=== PATIENT | female | born 1985 | race Caucasian/White ===

== ENCOUNTER 2024-05-15 11:13 | Emergency (ER) | payer MEDICAID, SELFPAY ==
[2024-05-15 11:15] VITALS: BP 114/75; PULSE 97; RESP 16; TEMP 36.7; O2SAT 99; BMI 32.1
[2024-05-15] MEDS: Lidocaine 2% Viscous15 ML UDC 15 ML PO (11:46)
[2024-05-15] MEDS: Mag /Aluminum/Simeth WCH UDC 30 ML ORAL.SUSP PO (11:46)
--- NOTE | 2024-05-15 11:48 | EDS_ITS ---
HPI History of Present Illness Chief Complaint: Foreign Body Detail of Chief Complaint: Sliding sensation in her chest and burning sensation Informant: patient Onset/Context/Timing Onset: - (Persistent past 5 days, prior intermittent) Context: Sudden Onset Timing: Continuous Quality: Burning sensation with a sensation of something sliding up and down her angel Location: Chest Current Severity: Mild Maximum Severity: Severe Worsened by: Swallowing liquids or solids Relieved by: Nothing Associated Symptoms Associated Symptoms: No other symptoms Narrative Narrative: Patient is a 38-year-old female. She was seen yesterday at [facility]. Her records from what is [facility] were obtained. The history and physical performed by the ER physician was reviewed. The report was authored by Dr. Freddy Gamino. Tests that were performed included chest x- ray, test, urinalysis, CBC, troponin, D-dimer and comprehensive metabolic panel. She also had an EKG performed that was normal. UA was negative. The UA was a contaminated specimen. D-dimer was 0.19. Troponin was less than 0.012. Comprehensive metabolic panel reveals slight elevation of BUN. CBC revealed no abnormality patient was instructed to take Prilosec. Patient does report some increased symptoms when she is supine. She denies black or ma roon-colored stool. She has had no vomiting. She has never seen a GI specialist. Prior similar symptoms: Yes Recent Illness/Hospitalization: Yes [facility] Medical History GERD (gastroesophageal reflux disease) Home Medications ?Medication ?Instructions ?Recorded ?Last Taken ?Type omeprazole 40 mg capsule,delayed 40 mg PO DAILY #30 caps 05/15/24 Unknown Rx release Allergy/AdvReac Type Severity Reaction Status Date / Time Penicillins (PCN) Allergy Severe Anaphylaxis Verified 05/15/24 11:14 Social History (Updated 05/15/24 @ 11:[address] Manohar Ramos MD) Smoking Status: Former smoker details: Not recently substance use type: does not use ROS ROS ED Constitutional Constitutional ED: Reports other Details: Patient reports 5 pound weight gain in the past 2 weeks. ; Denies chills, fever(s), subjective, sweats or weight loss Eyes Eyes: Denies blurry vision, change in vision or diplopia ENT ENT ED: Denies ear pain, rhinorrhea or sore throat Cardiovascular Cardiovascular: Reports chest pain and other Details: She denies orthopnea or PND. ; Denies orthopnea, palpitations, paroxysmal nocturnal dyspnea or racing heartbeat Respiratory/Chest Respiratory/Chest: Denies cough, dyspnea, dyspnea on exertion, orthopnea, paroxysmal nocturnal dyspnea or sputum Gastrointestinal Gastrointestinal: Denies abdominal pain, nausea or vomiting Genitourinary Genitourinary ED: Denies dysuria, hematuria or urinary frequency Musculoskeletal Musculoskeletal: Denies back pain Hematologic/Lymphatic Hematologic/Lymphatic: Reports systems reviewed and no addt'l complaints, except as documented EXAM Physical Exam Const Vital Signs: 05/15/24 11:15 05/15/24 11:49 Temperature 98.1 F Temperature Source Temporal Pulse Rate 97 Respiratory Rate 16 Respiratory Effort Normal Respiratory Pattern Normal Blood Pressure 114/75 Blood Pressure Mean 88 Pulse Ox 99 Oxygen Delivery Method Room Air Positive well nourished Constitutional Narrative: Patient at 1 point looked as if she was tearful. General Appearance ED: NAD; Negative for cyanotic, diaphoretic or pallor HEENT Reports dry mucous membranes HEENT Narrative: Normal posterior pharynx Mouth ED: Yes dry mucous membranes Mouth: dry mucous membranes Eyes PERRL and EOMs intact bilaterally General Eye ED: Negative for pale conjunctiva or scleral icterus Neck no lymphadenopathy, supple and no JVD Chest Wall inspection of chest normal and palpation of chest normal Resp normal respiratory effort and clear to auscultation bilaterally Cardio regular rate, regular rhythm, S1 normal heart sound, S2 normal heart sound and no murmurs GI normal to inspection, nondistended, normoactive bowel sounds, non-tender, non- distended and no masses; Negative for hepatosplenomegaly Palpation: Negative for mass Back/Spine no CVA tenderness Extremity normal to inspection General Extremety ED: Negative for edema or tenderness General Extremity: Negative for edema Neuro oriented x3 and CN's II-XII intact bilaterally Sensorium / Orientation: alert Psych Mood & Affect: anxious Skin no rashes or lesions noted, no wounds and skin turgor normal General Skin Exam: elasticity normal; Negative for jaundice or pallor MDM MDM MDM Narrative Medical decision making narrative: Patient's symptoms are consistent with GI etiology i.e. esophagitis/reflux. Since patient had significant workup yesterday and report and laboratory results as well as imaging results are available my opinion there is no indication to repeat these. Treatment and Re-Evaluation :: Patient was reassessed at 1200. Patient was discharged home in stable improved condition. She states the GI cocktail did help. Discharge Plan Triage Chief Complaint: Foreign Body ED Provider: Manohar Ramos Dx/Rx/DC Orders Clinical Impression: Dyspepsia, Gastroesophageal reflux disease Instructions: GERD Lifestyle Changes, ED GERD (Adult) Prescriptions: New omeprazole 40 mg capsule,delayed release(DR/EC) 40 mg PO DAILY Qty: 30 0RF Primary Care Provider: Care Physician,No Primary Referrals: Friend,Fredo, [Med Staff - Active Staff] - 1-2 Weeks NOT,DEFINED [Non-Staff] - Print Language: Greek Disposition Disposition: Home, Self Care
[2024-05-15 12:08] VITALS: BP 127/63; PULSE 72; RESP 15; TEMP 36.4; O2SAT 99
== END 2024-05-15 12:09 | disposition home or self-care (01) ==
PROVIDERS: Emergency Provider Emergency Medicine; Visit Provider Emergency Medicine
DX: K21.9 Gastro-esophageal reflux disease without esophagitis (principal); Z87.891 Personal history of nicotine dependence
CPT/HCPCS: 99283

== ENCOUNTER 2024-05-30 07:36 | Day surgery (SDC) | payer MEDICAID, SELFPAY ==
[2024-05-30] MEDS: Lidocaine Jelly 2% 20 ML Syringe (URO-JET) 1 APPLIC (07:51)
[2024-05-30 07:56] VITALS: BP 115/71; PULSE 90; RESP 16; TEMP 37; O2SAT 100
== END 2024-05-30 08:25 | disposition home or self-care (01) ==
PROVIDERS: Visit Provider Internal Medicine Gastroenterology
PROC: F00ZJWZ Instrumental Swallowing and Oral Function Assessment using Swallowing Equipment (ICD-10-PCS; CPT 43235; principal; 2024-05-30 07:40)
DX: K22.2 Esophageal obstruction (principal); K44.9 Diaphragmatic hernia without obstruction or gangrene; K29.50 Unspecified chronic gastritis without bleeding; K31.89 Other diseases of stomach and duodenum; K21.9 Gastro-esophageal reflux disease without esophagitis; F17.210 Nicotine dependence, cigarettes, uncomplicated; F17.290 Nicotine dependence, other tobacco product, uncomplicated; Z79.899 Other long term (current) drug therapy
CPT/HCPCS: 43239; 43248

== ENCOUNTER 2024-06-05 05:23 | Day surgery (SDC) | payer MEDICAID, SELFPAY ==
[2024-06-05] VITALS (8 sets, daily range): BP systolic 95–111; BP diastolic 57–68; PULSE 75–100; RESP 16–18; TEMP 36.2–36.6; O2SAT 98–99; BMI 31.4
[2024-06-05] MEDS: Lactated Ringers 1,000 ML 15 ML IV (05:53)
--- NOTE | 2024-06-05 06:28 | HP.PCM_ITS ---
History and Physical Date of Admission: 06/05/24 [facility] [address] [place] [address] OFFICE VISIT Date of Service: 05/26/24 MR#: [id number] Acct: [id number] Name: LINDA ALBA Rep #: [id number] : 1985 Provider: PRAVEEN Singh Age/Sex: 38/F Location: [facility] Status: Signed Intake Vital Signs 05/15/2411:15 Height 5 ft 2 in Intake Visit Reasons: Gastroesophageal reflux disease (GERD) Allergies Penicillins (PCN) Allergy (Severe, Verified 05/15/24 11:14) Anaphylaxis Nurse's Note: OV 05.26.24 Pt here for GERD sx. Pt reports if feels like there is something stuck in her throat for the past three weeks. She feels the food coming up and down. She has lost 7 lbs in 3 days and is finding it hard to eat. Pt started omeprazole 3 weeks ago with no relief. Has formed BM every day. [facility] Medical History (Updated 05/26/24 @ 08:31 by PRAVEEN Batista) GERD (gastroesophageal reflux disease) Social History (Updated 05/15/24 @ 11:[address] Manohar Ramos MD) Smoking Status: Former smoker details: Not recently substance use type: does not use HPI HPI Details: LINDA ALBA, is a 38 F who presents to the office today for establishment with [facility] for complaints of food moving up and down in her throat. She has been to [facility] ER on 05/15/24 and the doctor charted having received her records from [facility], on 05/14/24. The history and physical performed by the ER physician was reviewed. The report was authored by Dr. Freddy Gamino. Tests that were performed included chest x-ray, test, urinalysis, CBC, troponin, D-dimer and comprehensive metabolic panel. She also had an EKG performed that was normal. UA was negative. The UA was a contaminated specimen. D-dimer was 0.19. Troponin was less than 0.012. Comprehensive metabolic panel reveals slight elevation of BUN. CBC revealed no abnormality patient was instructed to take Prilosec. Today, she reports that the Prilosec has not helped the sensation of food moving in her throat. She reports that she's afraid to eat, stating a 7 pound weight loss in 1 week. She states the symptoms are much worse if lying supine, sleeps with her head elevated and on her left side. Denies vomiting, but her belching tastes and smells like vomit. Denies epigastric pain, diarrhea, constipation, fever, chills, difficulty chewing. Denies bloating and excessive gas. Reports primary family history of asthma. Denies food allergies or sensitivities. ROS Const Constitutional: Positive for weight change; No fatigue or fever(s) Eyes Eyes: No change in vision ENT ENT: Positive for difficulty swallowing; No abnormal hearing Resp Respiratory: No cough Cardio Cardiology: No chest pain at rest or chest pain with exertion Gastro GI: Positive for heartburn, difficulty swallowing and nausea/dyspepsia; No abdominal pain, belching, bloating, change in bowel habits, change in stool character, coffee ground emesis, constipation, cramping, diarrhea, feeling full early, excessive flatus, incontinent of stools, Vomiting blood/hematemesis, Blood in stool, loose stools, Black,tarry stools, pain with swallowing, vomiting or other Genitourinary-Female: No difficulty urinating Musc Musculoskeletal: No joint pain Skin Skin: No yellowing of the eye or itchy eyes Neuro Neurology: No abnormal hearing Psych Psychiatric: Positive for anxiety and No depression Endo Endocrine: Positive for weight change; No fatigue Aller/Imm Allergy/Immunologic: No food intolerance or itchy eyes Lobito/Lymp Hematologic/Lymphatic: No easy bleeding or easy bruising Exam Const General: cooperative and healthy appearing Nutritional Appearance: average body habitus Orientation: alert [facility] Head: normal to inspection Ears: hearing grossly normal bilaterally Nose: external nose normal Face and sinus: normal facial exam and face symmetric Eyes General: appearance normal, both eyes and all related structures Sclera: sclerae normal Neck Neck: normal visual inspection and full ROM Neck mass: No Chest Chest palpation & inspection: normal inspection of the chest Resp Effort & Inspection: normal respiratory effort, able to speak in complete sentences and symmetric chest movement GI Inspection: normal to inspection Skin General: no rashes or lesions noted Neuro General: patient alert, patient awake and patient oriented x3 Cranial Nerves: CN's II-XI intact bilaterally Cognition: normal cognition Speech: speech normal Gait: normal gait Extrem General: full ROM Psych Appearance: well kempt Mood: congruent mood Assessment and Plan Assessment and Plan (1) Gastroesophageal reflux disease: Status: Acute Qualifiers: Esophagitis presence: esophagitis presence not specified Qualified Code(s): K21.9 - Gastro-esophageal reflux disease without esophagitis Plan: LINDA ALBA, is a 38 F who presents to the office today for establishment with [facility] for complaints of food moving up and down in her throat. Differential diagnoses include: EoE, GERD, esophageal dysmotility, LES dysfunction, gastroparesis, gastric outlet obstruction. * GET, 1 hr test to look for emptying time * esophageal manometry to rule out achalasia * EGD for tissue Bx to check for EoE, alarm symptom of 7 pound weight loss in 1 week Orders: Orders Gastric Emptying Study Today K21.9 - Gastro-esophageal reflux disease without esophagitis Medications: New omeprazole Stop taking 5 days before scheduled EGD. 40 mg PO BID 60 caps 2RF famotidine Stop taking 5 days before scheduled EGD. 20 mg PO BID PRN 60 tabs 2RF in digestion I have examined the patient and the H&P has been reviewed. There are no clinical changes since date of exam.
--- NOTE | 2024-06-05 06:28 | PRE.ANES_ITS ---
ASA Classification* ASA Classification ASA Classification: 2 Assessment & Plan Anesthesia* Anesthesia Assessment Anesthesia Assessment: Discussed sedation and/or anesthesia options, risks, benefits, and alternatives with patient/parents/legal guardian/POA. Questions invited. The patient/parents/legal guardian/POA seems to understand and agrees to proceed with anesthesia plan. Reviewed the physical assessment, medical history, allergy history and patient home medications list prior to surgery/procedure/anesthetic and documented any changes. Performed airway and anesthesia risk assessments. Anesthesia Type Anesthesia Type: MAC History Source History Obtained from:: Patient and Chart Anesthesia Focused Assessment* Temperature: 97.8 F Pulse Rate: 97 Blood Pressure: 111/60 Respiratory Rate: 16 Pulse Ox: 98 Airway Assessment Mouth opens: >3 cm Mallampati Score: II Teeth Condition: Intact Neck Range of motion (ROM): Full ROM Focused Labs Anesthesia Preop lab: CBC CHEMISTRY COAG Pre-Assessment Diagnosis/Proposed Procedure Planned Operative Procedure(s): EGD Anesthesia History Anesthesia History - retail selling specialist: Anesthesia History - retail selling specialist Hx Hospitalization No 06/03/24 15:08 Any Problems With Anesthesia No 06/03/24 15:08 Cholinesterase deficiency No 06/03/24 15:08 You/Your Family Experience No 06/03/24 15:08 fever (hyperthermia) with Relationship Recent Exposure to Contagious No 06/05/24 05:50 Disease Does patient have nerve No 06/03/24 15:08 stimulator Patient instructed to have device shut off --Does patient have Pacemaker No 06/05/24 05:50 or ICD? When Was Last Pacemaker Check QUESTION #4 FULL TEXT: You/Your Family Experience fever (hyperthermia) with Anesthesia Last Oral Intake Last Oral intake: Last Oral Intake NPO since Meds taken in AM with sips of water? Meds patient instructed to take am of surgery PONV PONV - retail selling specialist: PONV - retail selling specialist Female Yes 06/03/24 15:08 HX of Motion Sickness No 06/03/24 15:08 HX of N/V After Surgery No 06/03/24 15:08 Non-Smoker No 06/03/24 15:08 Duration of Surgery greater No 06/03/24 15:08 than 60 minutes Number of Risk Factors 1 06/03/24 15:08 PONV Score Low Risk 06/03/24 15:08 Height & Weight Height & Weight: Anesthesia: Height & Weight Height 5 ft 2 in 06/05/24 05:50 Weight: 78 kg 06/05/24 05:50 Body Mass Index (BMI) 31.4 06/05/24 05:50 Respiratory Assessment Respiratory Assessment - retail selling specialist: Respiratory Tract Infection Hx - retail selling specialist Hx Respiratory Tract Infection No 06/03/24 15:08 STOP Sleep Apnea STOP Sleep Apnea - retail selling specialist: STOP Sleep Apnea - retail selling specialist Hx Hypertension No 06/03/24 15:08 Hx Sleep Apnea No 06/03/24 15:08 CPAP BIPAP Do you snore loudly (louder No 06/03/24 15:08 than talking or can be heard Do you often feel tired/ No 06/03/24 15:08 fatigued/ sleepy during daytime? Has anyone observed you stop No 06/03/24 15:08 breathing during sleep? STOP Results Negative 06/03/24 15:08 QUESTION #5 FULL TEXT : Do you snore loudly (louder than talking or can be heard through closed doors)? 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 Specify any problems Hx of Preganancy in last 3 No 06/03/24 15:08 Months Nurse Filling Out Transfusion DSCHRIBER 06/03/24 15:08 & Questions: Date: 06/03/24 06/03/24 15:08 Time: 15:09 06/03/24 15:08 Patient unable to answer at this time (ie. confused, unrespo /Reproduction History /Reproductive History - retail selling specialist: /Reproductive Hx- retail selling specialist Hx Now No 06/03/24 15:08 Gestational Age (in weeks): EDC: Hx Hx Para Hx Section SAB No 06/03/24 15:08 Active Medications Active Medications: Current Medications Generic Name Dose Route Start Last Admin Trade Name Freq PRN Reason Stop Dose Admin Lactated Ringer's 1,000 mls @ 15 mls/hr 06/05/24 05:45 06/05/24 05:53 IV 15 mls/hr .Q48H VARINDER Administration PFSH Medical History Wears glasses Anemia Smoker GERD (gastroesophageal reflux disease) Home Medications ?Medication ?Instructions ?Recorded ?Last Taken ?Type famotidine 20 mg tablet 20 mg PO BID PRN indigestion #60 05/26/24 05/31/24 Rx tabs omeprazole 40 mg capsule,delayed 40 mg PO BID #60 caps 05/26/24 Unknown Rx release Allergy/AdvReac Type Severity Reaction Status Date / Time Penicillins (PCN) Allergy Severe Anaphylaxis Verified 06/05/24 05:50 Surgical History Hx of tubal ligation Hx of tonsillectomy Social History Smoking Status: Current some day smoker tobacco type: cigarettes and e- cigarettes details: Not recently substance use type: does not use Review of Systems (Anesthesia) ROS Narrative System reviewed and no additional complaints, except as documented.
--- NOTE | 2024-06-05 06:30 | EGD_PTH ---
PATIENT: LINDA ALBA LOC: [facility] U#:[id number] AGE/SX: 39/F ROOM: RE06/05/[address]: Dr. Fredo Welch DO : 1985 BED: DIS: 06/05/2024 SPEC #: [id number] RECD: 06/05/24 09:25 STATUS: GENESIS PETER #: [id number] ANJANA: 06/05/24 06:[address]: Fredo Welch DEPT: SURGICAL PATHOLOGY RECD BY: Isabell Ulloa ENTERED: 06/05/24 10:48 SP TYPE: EGD BIOPSY OTHR DR: Mirela Primary Care Phys Tissues: A - Esophagus, NOS B - Esophagus, NOS C - Gastric mucous membrane D - Duodenum, NOS Procedures: Special Stain Group I Surgery Specimen Level IV Alcian Blue/PAS (control) HEADER OPERATION: EGD with biopsy and dilation PRE-OP DIAGNOSIS: TISSUE SUBMITTED: A- Distal esophagus biopsy, B- Random esophagus biopsy, C- Gastric body biopsy, D- Duodenum biopsy MICROSCOPIC DIAGNOSIS A. Distal esophagus, biopsy: Fragments of gastroesophageal mucosa with chronic inflammation. Intestinal metaplasia (goblet cell metaplasia) not identified. See comment. B. Esophagus, random biopsy: Fragments of benign squamous epithelium. See comment. C. Gastric body, biopsy: Mild gastritis. See microscopic description and comment. D. 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 SJ/mr 06/06/2024 COMMENT A. Alcian blue/PAS stain with matched control is used in the evaluation of the specimen. The specimen predominantly consists of gastric mucosa. B. Increased number of eosinophils consistent with eosinophilic esophagitis are not seen. C. The results of immunohistochemistry for Helicobacter pylori will be reported separately ([id number]). MICROSCOPIC DESCRIPTION Slides are reviewed. C. The specimen shows fragments of gastric mucosa with chronic inflammatory cell infiltrates in the lamina propria consisting of lymphocytes and plasma cells, consistent with mild chronic gastritis. GROSS DESCRIPTION A. Received in fixative is one container labeled with the patient's name and designated Distal esophagus biopsy. The specimen consists of two irregular fragments of light sinclair soft tissue that in aggregate measure 0.6 x 0.3 x 0.1 cm. The specimen is totally submitted in one cassette. B. Received in fixative is one container labeled with the patient's name and designated Random esophagus biopsy. The specimen consists of multiple irregular fragments of light sinclair soft tissue that in aggregate measure 1.0 x 0.3 x 0.1 cm. The specimen is totally submitted in one cassette. C. Received in fixative is one container labeled with the patient's name and designated Gastric body biopsy. The specimen consists of multiple irregular fragments of light sinclair soft tissue that in aggregate measure 0.8 x 0.3 x 0.1 cm. The specimen is totally submitted in one cassette. D. Received in fixative is one container labeled with the patient's name and designated Duodenum biopsy. The specimen consists of multiple irregular fragments of light sinclair soft tissue that in aggregate measure 1.0 x 0.3 x 0.1 cm. The specimen is totally submitted in one cassette. SJ.mr 06/05/2024 TC:3 CPT:[id number]
--- NOTE | 2024-06-05 06:30 | IMM_PTH ---
PATIENT: LINDA ALBA LOC: EN U#:[id number] AGE/SX: 39/F ROOM: RE06/05/[address]: Dr. Fredo Welch DO : 1985 BED: DIS: 06/05/2024 SPEC #: [id number] RECD: 06/05/24 10:18 STATUS: GENESIS REQ #: [id number] ANJANA: 06/05/24 06:[address]: Fredo Welch DEPT: IMMUNOHISTOCHEMISTRY RECD BY: Chetan Thomas ENTERED: 06/05/24 10:19 SP TYPE: IMMUNO OT DR: No Primary Care Phys Tissues: C - Gastric mucous membrane Procedures: H Pylori (initial) PHYSICIAN & INSTITUTION [place] [id number] SPECIMEN INFORMATION: Tissue Source: C- Gastric body biopsy Clinical Info: GERD Specimen Number: [id number] CPT code: 31842 METHODOLOGY: Deparaffinized sections of prefer/formalin-fixed tissue or PAP/DQ stained slides are incubated with monoclonal/polyclonal antibodies/oligonucleotide probes. Localization is made via biotin free immunoperoxidase method. Appropriate controls are performed and reacted as expected. Results on target cell population are indicated in the following table: RESULTS: ANTIBODY / CLONE RESULT Block C H Pylori (polyclonal) negative These tests were developed and their performance characteristics determined by [facility]. They may not have been cleared or approved by the U.S. Food and Drug Administration. The FDA has determined that such clearance or approval is not necessary. The above immunohistochemical/dualISH markers are ordered and reviewed by the Pathologist. INTERPRETATION: C. Gastric body, biopsy: Negative for Helicobacter pylori organisms. 06/06/2024
--- NOTE | 2024-06-05 07:01 | OP.EGD_ITS ---
Patient Name: Jamila Almonte Procedure Date: 06/05/2024 6:24 AM Date of : 1985 Age: 39 Procedure: Upper GI endoscopy Indications: Dysphagia, Failure to respond to medical treatment, Foreign body in the esophagus Providers: Fredo Welch DO Medicines: Monitored Anesthesia Care Patient Profile: This is a 39 year old female. Refer to note in patient chart for documentation of history and physical. Patient has symptoms of acute dysphagia and dysphagia with solids. Complications: No immediate complications. Procedure: Pre-Anesthesia Assessment: - Prior to the procedure, a History and Physical was performed, and patient medications and allergies were reviewed. The patient is competent. The risks and benefits of the procedure and the sedation options and risks were discussed with the patient. All questions were answered and informed consent was obtained. Patient identification and proposed procedure were verified by the physician in the pre-procedure area. Mental Status Examination: alert and oriented. Airway Examination: normal oropharyngeal airway and neck mobility. Respiratory Examination: clear to auscultation. CV Examination: normal. Prophylactic Antibiotics: The patient does not require prophylactic antibiotics. Prior Anticoagulants: The patient has taken no anticoagulant or antiplatelet agents except for NSAID medication. ASA Grade Assessment: II - A patient with mild systemic disease. After reviewing the risks and benefits, the patient was deemed in satisfactory condition to undergo the procedure. The anesthesia plan was to use monitored anesthesia care (MAC). Immediately prior to administration of medications, the patient was re-assessed for adequacy to receive sedatives. The heart rate, respiratory rate, oxygen saturations, blood pressure, adequacy of pulmonary ventilation, and response to care were monitored throughout the procedure. The physical status of the patient was re-assessed after the procedure. After obtaining informed consent, the endoscope was passed under direct vision. Throughout the procedure, the patient's blood pressure, pulse, and oxygen saturations were monitored continuously. The Endoscope was introduced through the mouth, and advanced to the second part of duodenum. The upper GI endoscopy was accomplished without difficulty. The patient tolerated the procedure well. Scope In: 6:43:56 AM Scope Out: 6:51:13 AM Total Procedure Duration Time 0 hours 7 minutes 17 seconds Findings: The Z-line was irregular and was found 39 cm from the incisors. Biopsies were taken with a cold forceps for histology. Verification of patient identification for the specimen was done. Estimated blood loss was minimal. Mucosal changes including longitudinal furrows, small-caliber esophagus and crepe paper esophagus were found in the middle third of the esophagus. Biopsies were obtained from the proximal and distal esophagus with cold forceps for histology of suspected eosinophilic esophagitis. Verification of patient identification for the specimen was done. Estimated blood loss was minimal. One benign-appearing, intrinsic moderate stenosis was found 20 to 22 cm from the incisors. The stenosis was traversed. A guidewire was placed and the scope was withdrawn. Dilation was performed with a Savary dilator with no resistance at 60 Fr. The dilation site was examined and showed moderate mucosal disruption. A small hiatal hernia was present. Patchy mild inflammation characterized by congestion (edema) was found in the gastric body. Biopsies were taken with a cold forceps for histology. Verification of patient identification for the specimen was done. Estimated blood loss was minimal. Biopsies were taken with a cold forceps for Helicobacter pylori testing. Verification of patient identification for the specimen was done. Estimated blood loss was minimal. Patchy mildly erythematous mucosa without active bleeding and with no stigmata of bleeding was found in the duodenal bulb. Biopsies were taken with a cold forceps for histology. Verification of patient identification for the specimen was done. Estimated blood loss was minimal. Impression: - Z-line irregular, 39 cm from the incisors. Biopsied. - Esophageal mucosal changes suspicious for eosinophilic esophagitis. - Benign-appearing esophageal stenosis. Dilated. - Small hiatal hernia. - Chronic gastritis. Biopsied. - Erythematous duodenopathy. Biopsied. - Biopsies were taken with a cold forceps for evaluation of eosinophilic esophagitis. Recommendation: - Discharge patient to home. - Resume previous diet. - Continue present medications. - Await pathology results. Procedure Code(s): --- Professional --- 44386, Esophagogastroduodenoscopy, flexible, transoral; with insertion of guide wire followed by passage of dilator(s) through esophagus over guide wire 76132, 59,51, Esophagogastroduodenoscopy, flexible, transoral; with biopsy, single or multiple CPT copyright 2021 [employer]. All rights reserved. The codes documented in this report are preliminary and upon stripper latex review may be revised to meet current compliance requirements. Fredo Welch DO 06/05/2024 6:59:41 AM This report has been signed electronically. Number of Addenda: 0 Note Initiated On: 06/05/2024 6:24 AM
--- NOTE | 2024-06-05 07:01 | OP.CCLET_ITS ---
06/05/2024 No Primary Care Physician Re : Upper GI endoscopy procedure for Jamila Almonte Dear Care Physician This procedure was performed on June. My impressions and recommendations are as follows: Impressions : - Z-line irregular, 39 cm from the incisors. Biopsied. - Esophageal mucosal changes suspicious for eosinophilic esophagitis. - Benign-appearing esophageal stenosis. Dilated. - Small hiatal hernia. - Chronic gastritis. Biopsied. - Erythematous duodenopathy. Biopsied. - Biopsies were taken with a cold forceps for evaluation of eosinophilic esophagitis. Recommendations : - Discharge patient to home. - Resume previous diet. - Continue present medications. - Await pathology results. My findings are described in the full procedure note, which is enclosed. If I can be of further assistance, please feel free to contact me at . Sincerely, Fredo Welch, 06/05/2024 6:59:41 AM This report has been signed electronically.
--- NOTE | 2024-06-05 07:02 | PCM.POST.ANE ---
Anesthesia: Postop Eval I Current Vital Signs Temperature: 97.1 F Pulse Rate: 92 Blood Pressure: 105/63 Respiratory Rate: 18 Pulse Ox: 98 Oxygen Delivery Method: Room Air Assessment Airway patent: Yes Spontaneous unlabored respirations: Yes Mental status: Asleep nausea: No Vomiting: No Anesthesia Complication: No Fluid Hydration Crystalloid volume administer (ml): 400 Total IV fluid infused: 400 Progress Note Anesthesia document: Postop Eval 1 completed: Yes
--- NOTE | 2024-06-05 07:27 | PCM.POSTANE2 ---
Anesthesia Postop Eval I Sum Postop Eval Completion status Anesthesia document: Postop Eval 1 completed: Yes Anesthesia Postop Eval I Summary Anesthesia Postop Eval I Summary: Anesthesia Postop Eval I: Assessment Summary Airway patent Yes 06/05/24 07:04 [email or web address] Spontaneous unlabored Yes 06/05/24 07:04 [email or web address] respirations Mental status Asleep 06/05/24 07:04 [email or web address] nausea No 06/05/24 07:04 [email or web address] Vomiting No 06/05/24 07:04 [email or web address] Anesthesia Postop Eval I: Fluid Summary Crystalloid volume administer 400 06/05/24 07:04 [email or web address] (ml) Colloids volume administered ( ml) Blood Product volume administered (ml) Total IV fluid infused 400 06/05/24 07:04 [email or web address] Anesthesia Postop Eval I: Summary Notes Anesthesia Complication No 06/05/24 07:04 [email or web address] Anesthesia Complication Comment: Post-operative progress note Anesthesia: Postop Eval II Evaluation Mental status: Awake Pain Level: 0 nausea: No Vomiting: No
== END 2024-06-05 07:46 | disposition home or self-care (01) ==
LOC: EN 05:24 → AC 05:25
PROVIDERS: Visit Provider Internal Medicine Gastroenterology
PROC: 0DJ08ZZ Inspection of Upper Intestinal Tract, Via Natural or Artificial Opening Endoscopic (ICD-10-PCS; CPT 43235; principal; 2024-06-05 06:25)
DX: K22.2 Esophageal obstruction (principal); K21.9 Gastro-esophageal reflux disease without esophagitis; K44.9 Diaphragmatic hernia without obstruction or gangrene; K29.50 Unspecified chronic gastritis without bleeding; K31.89 Other diseases of stomach and duodenum; F17.210 Nicotine dependence, cigarettes, uncomplicated; F17.290 Nicotine dependence, other tobacco product, uncomplicated; Z79.899 Other long term (current) drug therapy
CPT/HCPCS: 43239; 43248; 88305; 88312; 88342; J7120; C1769; J2405

== ENCOUNTER 2024-06-13 07:29 | Emergency (ER) | payer MEDICAID, SELFPAY ==
[2024-06-13 07:32] VITALS: BP 120/71; PULSE 105; RESP 18; TEMP 36.8; O2SAT 99; BMI 31.8
--- NOTE | 2024-06-13 07:42 | CT_ITS ---
STUDY: CT ABDOMEN AND PELVIS WITH CONTRAST REASON FOR EXAM: Female, 39 years old. Epigastric pain, recent egd with biopsies RADIATION DOSAGE (If Supplied By Facility): CTDIvol = ( 14.3 ) mGy, DLP = ( 824.50 ) mGycm TECHNIQUE: Transaxial images were obtained from the dome of the diaphragm to the symphysis pubis without oral contrast. IV 100mL Isovue-300 was administered. Sagittal and coronal images were reconstructed. Individualized dose optimization techniques were used for this CT. COMPARISON: None. FINDINGS: The visualized lung bases are unremarkable. The visualized portions of the heart are within normal limits. Normal liver. Normal gallbladder and extrahepatic biliary system. Normal spleen. Normal pancreas. Normal bilateral adrenal glands. Normal right kidney. Normal left kidney. Normal visualized stomach. Normal small intestine. There are scattered colonic diverticula consistent with diverticulosis. The appendix is visualized and appears normal. Normal abdominal aorta. Normal inferior vena cava. There is small retroperitoneal lymphadenopathy with enlarged nodes greater than 10-15mm in the short axis. Normal urinary bladder. There is a 4.7 cm x 4 cm cyst in the right ovary. Small follicles are seen in the left ovary. Tubal ligation clips are seen in the region of the cul-de-sac. Normal abdominal wall. Normal osseous structures. CT/Abdomen/Pelvis W IV Cont ONLY IMPRESSION: 4.7 cm x 4 cm right ovarian cyst. Scattered sigmoid diverticula. Electronically Signed: Rigoberto Barr MD at 8:30 EDT ,
--- NOTE | 2024-06-13 07:43 | EDS_ITS ---
HPI History of Present Illness Chief Complaint: Abd Pain Narrative Narrative: Patient is a 39-year-old female past medical history of anemia, GERD who presented to the emergency department with a chief complaint of abdominal pain. Patient states that her abdominal pain started last night around 10 PM and states that she is unable to keep anything down. She states that she followed up with Dr. Welch recently and had a upper scope done with some biopsies. Patient states that she was doing well after the scope. Patient denies any recent sick contacts. Patient rates her pain an 8 out of 10 and describes this as sharp and stabbing. Patient denies any alcohol use, drug use or smoking. [facility] Medical History Wears glasses Anemia Smoker GERD (gastroesophageal reflux disease) Home Medications ?Medication ?Instructions ?Recorded ?Last Taken ?Type famotidine 20 mg tablet 20 mg PO BID PRN indigestion #60 05/26/24 05/31/24 Rx tabs omeprazole 40 mg capsule,delayed 40 mg PO BID #60 caps 06/05/24 Unknown Rx release baclofen 5 mg tablet 5 mg PO TID #90 tabs 06/12/24 Unknown Rx cholestyramine (with sugar) 4 gram 4 g PO BID #60 ea 06/12/24 Unknown Rx powder for susp in a packet hyoscyamine sulfate 0.125 mg 0.125 mg PO Q6H PRN dyspepsia #30 06/13/24 Unknown Rx tablet (Levsin) tabs ondansetron 4 mg disintegrating 4 mg PO Q6H PRN nausea and 06/13/24 Unknown Rx tablet vomiting #20 tabs Allergy/AdvReac Type Severity Reaction Status Date / Time Penicillins (PCN) Allergy Severe Anaphylaxis Verified 06/13/24 07:34 Surgical History Hx of tubal ligation Hx of tonsillectomy Social History Smoking Status: Current some day smoker tobacco type: cigarettes and e- cigarettes details: Not recently substance use type: does not use ROS ROS ED ROS Narrative Constitutional: Denies fevers, chills, headaches, lightness, dizziness Cardiovascular: Denies chest pain or palpitations Respiratory: Denies coughing wheezing shortness of breath Abdomen: Complains of abdominal pain nausea vomiting as noted above denies diarrhea. Denies any dark tarry stools or blood in her stool : Denies painful urination, hematuria and polyuria Neurological: Denies numbness, weakness, tingling Musculoskeletal: Denies back pain Skin: Denies rashes or lesions EXAM Physical Exam Narrative Exam Narrative: General: Patient was laying in bed did appear to be uncomfortable secondary to her abdominal pain Head: Atraumatic, normocephalic Eyes: PERRL bilateral, EOMI blood, no conjunctival injection noted Neck: Soft, supple, trach midline Cardiovascular: Patient is tachycardic with a regular rhythm no murmurs gallops rubs noted Respiratory: Clear to auscultation bilaterally Abdomen: Soft, nondistended, tender to palpation in the epigastric and left upper quadrant no rebound or guarding on exam Extremities: +5/5 strength noted in the bilateral upper and lower extremities Neurological: Patient following commands knew that she was at [facility] year is 2023 Skin: Warm, dry, intact Const Vital Signs: 06/13/24 07:32 Temperature 98.2 F Temperature Source Oral Pulse Rate 105 H Respiratory Rate 18 Blood Pressure 120/71 Blood Pressure Mean 87 Pulse Ox 99 Oxygen Delivery Method Room Air MDM MDM MDM Narrative Medical decision making narrative: Patient is a 39-year-old female who presents to the emerged part with a chief complaint of abdominal pain. Patient will have a workup performed here on the differential diagnose includes but not limited to small bowel obstruction, pancreatitis, perforated ulcer, perforation from recent biopsy. Once workup obtained reviewed she will be reevaluated. Did review Dr. Welch's note and her findings were concerning for eosinophilic esophagitis. Patient CBC was largely unremarkable no evidence leukocytosis white blood count normal at 7.6, hemoglobin 13.3, plate count normal at 351. Patient sodium normal 140, potassium normal at 3.6, creatinine normal at 0.85. Patient's AST and ALT were 10 and 13 respectively, lipase normal at 50. Patient CT abdomen pelvis with IV contrast was reviewed and showed a 4.7 cm x 4 cm right ovarian cyst. Scattered sigmoid diverticula noted. Patient chest x-ray was reviewed as well by myself and by radiology showed normal x-ray of the chest no acute cardiopulmonary processes. On reevaluation the patient she states that she is feeling better than when she arrived she would like to go home at this point time. Patient be given prescription for Levsin/Bentyl as well as Zofran. She is encouraged to follow- up with Dr. Welch in the outpatient setting and her primary care physician. She is encouraged return with worsening symptoms or other concerns. All question concerns answered she was discharged in the stable condition Lab Data Labs: Laboratory Results - last 24 hr 06/13/24 07:50 WBC 7.6 RBC 4.50 Hgb 13.3 Hct 41.2 MCV 91.6 MCH 29.6 MCHC 32.3 RDW Std Deviation 43.8 RDW Coeff of Laura 12.9 Plt Count 351 MPV 9.6 Immature Gran % (Auto) 0.400 Neut % (Auto) 57.9 Lymph % (Auto) 28.7 Perry % (Auto) 10.4 H Eos % (Auto) 1.3 Baso % (Auto) 1.3 H Absolute Neuts (auto) 4.4 Absolute Lymphs (auto) 2.19 Nucleated RBC % 0 Sodium 140 Potassium 3.6 Chloride 106 Carbon Dioxide 28.0 Anion Gap 6 BUN 13 Creatinine 0.85 Estim Creat Clear Calc 88.22 Est GFR (MDRD) Af Amer 97 Est GFR (MDRD) Non-Af 80 BUN/Creatinine Ratio 15.3 Glucose 92 Calcium 9.8 Total Bilirubin 0.40 AST 10 L ALT 13 Alkaline Phosphatase 63 Total Protein 7.6 Albumin 3.9 Globulin 3.7 Albumin/Globulin Ratio 1.1 Lipase 50 Radiography Diagnostic Testing: Clinical Impression(s) from Imaging Studies Abdomen/Pelvis CT 06/13/24 07:42 IMPRESSION: 4.7 cm x 4 cm right ovarian cyst. Scattered sigmoid diverticula. Electronically Signed: Rigoberto Barr MD at 8:30 EDT , Chest X-Ray 06/13/24 08:07 IMPRESSION: Normal x-ray examination of the chest. Electronically Signed: Rigoberto Barr MD at 8:32 EDT , Discharge Plan Triage Chief Complaint: Abd Pain ED Provider: Han Oden Dx/Rx/DC Orders Clinical Impression: Abdominal pain Prescriptions: New hyoscyamine sulfate [Levsin] 0.125 mg tablet 0.125 mg PO Q6H PRN (Reason: dyspepsia) Qty: 30 0RF ondansetron 4 mg tablet,disintegrating 4 mg PO Q6H PRN (Reason: nausea and vomiting) Qty: 20 0RF No Action famotidine 20 mg tablet 20 mg PO BID PRN (Reason: indigestion) Qty: 60 2RF Rx Instructions: Stop taking 5 days before scheduled EGD. omeprazole 40 mg capsule,delayed release(DR/EC) 40 mg PO BID Qty: 60 2RF Rx Instructions: Stop taking 5 days before scheduled EGD. cholestyramine (with sugar) 4 gram powder in packet 4 g PO BID Qty: 60 2RF Rx Instructions: administer w/meal; avoid other meds within 1hr before or 4-6hr after dose baclofen 5 mg tablet 5 mg PO TID Qty: 90 2RF Primary Care Provider: Care Physician,No Primary Referrals: Care Physician,No Primary [Primary Care Provider] - Chance Riddle MD [Non-Staff] - Activity Restrictions/Additional Instructions: Follow with your primary care physician in the outpatient setting. Follow-up with Dr. Limon in outpatient setting. Take prescriptions as prescribed. Return with worsening symptoms or any other concerns Print Language: Serbian Disposition Disposition: Home, Self Care
[2024-06-13] MEDS: Morphine 4 MG/ML Syringe IV (07:52)
[2024-06-13] MEDS: Ondansetron 4 MG/2 ML Vial IV (07:52)
[2024-06-13 07:53] LABS: Absolute Lymphocyte Count 2.19 X10^3/uL (0.83-4.51); Absolute Neutrophil Count 4.4 X10^3/uL (2.0-7.7); Basophil% 1.3 % (0-1); Eosinophils% 1.3 % (0-5); Hematocrit 41.2 % (37-47); Hemoglobin 13.3 g/dL (12.0-15.0); Lymphocyte # 2.19 X10^3/ul (0.83-4.51); Lymphocyte % 28.7 % (19-41); Mean Corp Hgb Conc 32.3 g/dL (32-36); Mean Corpuscular Hgb 29.6 pg (27.0-32.0); Mean Corpuscular Volume 91.6 fL (81-99); Mean Platelet Vol. 9.6 fl (6.2-12.0); Monocyte# 0.79 X10^3/uL; Monocyte% 10.4 % (0-10); NRBC Flagged by Analyzer 0 % (0-5); Neutrophil # 4.41 X10^3/uL (2.7-7.7); Neutrophil % 57.9 % (47-70); Platelet Count 351 K/mm3 (150-450); RBC Distribution Width CV 12.9 % (11.6-14.6); RBC Distribution Width SD 43.8 fl (35.1-43.9); White Blood Count 7.6 K/mm3 (4.4-11.0)
--- NOTE | 2024-06-13 08:07 | RAD_ITS ---
STUDY: X-RAY CHEST REASON FOR EXAM: Female, 39 years old. Recent egd TECHNIQUE: PA and lateral views of the chest. COMPARISON: None. FINDINGS: The lungs are clear and expanded. Scattered calcified granulomas. There is no demonstrated pleural abnormality. Normal size heart. Normal mediastinum and jonah. Normal visualized pulmonary arteries. Normal visualized aortic arch and descending thoracic aorta. Normal visualized thoracic spine. Normal visualized ribs, clavicles, and shoulders. There is no demonstrated abnormality of the visualized soft tissue structures of the upper abdomen. RAD/Chest PA and Lateral IMPRESSION: Normal x-ray examination of the chest. Electronically Signed: Rigoberto Barr MD at 8:32 EDT ,
[2024-06-13 08:24] LABS: ALB/GLOB Ratio 1.1 RATIO (0.9-2.4); AST(SGOT) 10 U/L (15-37); Alanine Aminotransfer ALT/SGPT 13 U/L (13-56); Albumin, Serum 3.9 g/dL (3.2-5.0); Alkaline Phosphatase 63 U/L (45-117); Anion Gap 6 (5-15); BUN 13 mg/dL (7-18); BUN/Creat Ratio 15.3 RATIO (10-20); Calcium,Total 9.8 mg/dL (8.5-10.1); Chloride 106 mmol/L (98-107); Creatinine, Serum 0.85 mg/dL (0.55-1.02); EST Glomerular Filtration Rate 80 mL/min (>60); Est Glom Filt Rate - Afr Amer 97 mL/min (>60); Estimated Creatinine Clearance 88.22 ml/min; Globulin 3.7 g/dL (2.2-4.2); Glucose 92 mg/dL (74-106); Lipase 50 U/L (13-75); Potassium 3.6 mmol/L (3.5-5.1); Protein, Total 7.6 g/dL (6.4-8.2); Sodium Level 140 mmol/L (136-145)
[2024-06-13 08:59] VITALS: BP 122/71; PULSE 98; RESP 19; TEMP 36.8; O2SAT 97
== END 2024-06-13 09:17 | disposition home or self-care (01) ==
PROVIDERS: Emergency Provider Emergency Medicine; Visit Provider Emergency Medicine
DX: R10.13 Epigastric pain (principal); R10.12 Left upper quadrant pain; F17.210 Nicotine dependence, cigarettes, uncomplicated; F17.290 Nicotine dependence, other tobacco product, uncomplicated
CPT/HCPCS: 71046; 74177; 80053; 83690; 85025; 96374; 96375; 99283; Q9967; A4216; J2405

== ENCOUNTER → 2024-08-12 | Outpatient (CLI) | payer MEDICAID, SELFPAY ==
--- NOTE | 2024-08-12 10:19 | NM_ITS ---
CLINICAL: 39-year-old female with history of epigastric pain and reflux. SEMI-SOLID PHASE 99m Tc SULFUR COLLOID GASTRIC EMPTYING STUDY COMPARISON: CT of the abdomen-pelvis report 06/13/2024 FINDINGS: The patient was administered 1.1 mCi of 99m Tc sulfur colloid mixed with oatmeal and consumed per os. Image acquisitions in the anterior-posterior projections were obtained for 60 minutes. There is prompt visualization of the stomach. There is no gastroesophageal reflux identified. The T ? raw data emptying was calculated to be 39.63 minutes, (Normal: 12-56 minutes). NM/Gastric Emptying Study IMPRESSION: 1. NORMAL 99m Tc sulfur colloid semi-solid phase (oatmeal) gastric emptying imaging examination. A. There is normal and preserved semi-solid phase gastric emptying compared to normal controls. (Prashanth et al, J Nucl Med Tech 38: 186, 2010). Electronically Signed: Deny Salcido DO at 11:25 EST ,
== END | disposition home or self-care (01) ==
LOC: NM 10:16
DX: K21.9 Gastro-esophageal reflux disease without esophagitis (principal)
CPT/HCPCS: 78264; A9541

== ENCOUNTER 2024-09-05 04:16 | Emergency (ER) | payer MEDICAID, SELFPAY ==
[2024-09-05 04:17] VITALS: BP 117/78; PULSE 98; RESP 18; TEMP 36.8; O2SAT 99; BMI 25.6
--- NOTE | 2024-09-05 04:55 | EDS_ITS ---
HPI History of Present Illness Chief Complaint: General Illness Informant: patient and spouse/S.O. Narrative Narrative: Patient is a 39-year-old female with past medical history of GERD. She states that she has had nasal congestion sore throat and cough for approximately 10 days. She states 2 to 3 days ago she was seen at an urgent care for her symptoms and had a chest x-ray which was negative for pneumonia but did test positive for RSV. She states she has been doing [id number] medications but has developed increasing headache and sinus pain. She states she is unsure if she is developing a sinus infection and secondary to this comes in for evalua tion [facility] Medical History (Updated 09/05/24 @ 06:[address] Julio Anderson, DO) Wears glasses Anemia Smoker GERD (gastroesophageal reflux disease) Home Medications ?Medication ?Instructions ?Recorded ?Last Taken ?Type famotidine 20 mg tablet 20 mg PO BID PRN indigestion #60 05/26/24 05/31/24 Rx tabs omeprazole 40 mg capsule,delayed 40 mg PO BID #60 caps 06/05/24 Unknown Rx release baclofen 5 mg tablet 5 mg PO TID #90 tabs 06/12/24 Unknown Rx cholestyramine (with sugar) 4 gram 4 g PO BID #60 ea 06/12/24 Unknown Rx powder for susp in a packet hyoscyamine sulfate 0.125 mg 0.125 mg PO Q6H PRN dyspepsia #30 06/13/24 Unknown Rx tablet (Levsin) tabs ondansetron 4 mg disintegrating 4 mg PO Q6H PRN nausea and 06/13/24 Unknown Rx tablet vomiting #20 tabs benzonatate 200 mg capsule 200 mg PO TID PRN cough #30 caps 09/05/24 Unknown Rx doxycycline hyclate 100 mg capsule 100 mg PO BID 10 days #20 caps 09/05/24 Unknown Rx prednisone 20 mg tablet 40 mg (2 x 20 mg) PO DAILY 7 days 09/05/24 Unknown Rx #14 tabs Allergy/AdvReac Type Severity Reaction Status Date / Time Penicillins (PCN) Allergy Severe Anaphylaxis Verified 09/05/24 04:17 Surgical History (Updated 09/05/24 @ 04:20 by Brian Rice) H/O: hysterectomy Hx of tubal ligation Hx of tonsillectomy Social History Smoking Status: Former smoker details: Not recently substance use type: does not use ROS ROS ED Constitutional Constitutional ED: Denies chills or fever(s) ENT ENT ED: Reports rhinorrhea and sore throat Cardiovascular Cardiovascular: Denies chest pain Respiratory/Chest Respiratory/Chest: Reports cough; Denies dyspnea Gastrointestinal Gastrointestinal: Denies abdominal pain, diarrhea, nausea or vomiting Genitourinary Genitourinary ED: Denies dysuria Musculoskeletal Musculoskeletal: Reports myalgias Integumentary Denies rash Neurologic Neurologic: Reports headache(s) Hematologic/Lymphatic Hematologic/Lymphatic: Denies easy bleeding or easy bruising Allergic/Immunologic Allergic/Immunologic ED: Denies mouth swelling, tongue swelling or urticaria EXAM Physical Exam Const Vital Signs: 09/05/24 04:17 09/05/24 04:20 09/05/24 05:03 Temperature 98.2 F 98.1 F Temperature Source Oral Pulse Rate 98 104 H Respiratory Rate 18 18 Respiratory Effort Normal Respiratory Pattern Normal Blood Pressure 117/78 119/79 Blood Pressure Mean 91 92 Pulse Ox 99 94 Oxygen Delivery Method Room Air Positive well nourished and well developed General Appearance ED: well developed; Negative for pallor HEENT HEENT Narrative: No tongue or lip swelling no oral lesions no airway edema or compromise There is cobblestoning noted in the posterior pharynx consistent with sinus drainage. No secondary findings to suggest infection Nasal mucosa is hyperemic and boggy with enlarged inferior nasal turbinate Bilateral TMs are retracted without secondary findings to suggest infection There is decreased transillumination of the right maxillary sinus with pain on palpation at this site Eyes PERRL and EOMs intact bilaterally General Eye ED: Negative for scleral icterus Neck supple Neck Narrative: No nuchal rigidity or meningeal sign Resp normal respiratory effort and clear to auscultation bilaterally Cardio regular rate and regular rhythm Extremity normal to inspection Extremity Narrative: No asymmetric edema no pitting edema negative Homans' sign bilaterally Neuro oriented x3, CN's II-XII intact bilaterally and no sensory deficits noted Sensorium / Orientation: alert Motor Exam: strength 5/5 throughout Psych Psych Narrative: Patient has a flat affect Skin no rashes or lesions noted General Skin Exam: Negative for jaundice or pallor MDM MDM MDM Narrative Medical decision making narrative: Patient arrived to the ER with stable vitals and history and exam most consistent with viral infection. As she is already had a chest x-ray that was negative and her lungs are clear and she is not in respiratory distress or hypoxic I have low concern for developed pneumonia in the last 2 to 3 days. She has had a known viral swab which was positive for RSV which correlates with her symptoms. She does have decreased transillumination over the right maxillary sinus and pain at this site and she could be developing a bacterial sinusitis but as the symptoms have been present for approximately 10 days I believe this is still most likely viral. At this time should be placed on prednisone and Tessalon Perles to help with symptom relief. As there is concern she may be developing a bacterial sinusitis I will provide doxycycline and a [id number] prescription. This plan of care was discussed with the patient and significant other and they are agreeable to it but as she is stable without signs of respiratory distress or need for supplemental oxygen is otherwise safe for discharge History & Record Review Discussion w/independent historian: Patient and Significant other Discharge Plan Triage Chief Complaint: General Illness ED Provider: Julio Anderson Dx/Rx/DC Orders Clinical Impression: Respiratory syncytial virus (RSV) infection, Sinusitis, GERD (gastroesophageal reflux disease) Instructions: RSV (Respiratory Syncytial Virus), ED Sinusitis (Not Bacterial) Prescriptions: New doxycycline hyclate 100 mg capsule 100 mg PO BID 10 Days Qty: 20 0RF benzonatate 200 mg capsule 200 mg PO TID PRN (Reason: cough) Qty: 30 0RF prednisone 20 mg tablet 40 mg PO DAILY 7 Days Qty: 14 0RF No Action famotidine 20 mg tablet 20 mg PO BID PRN (Reason: indigestion) Qty: 60 2RF Rx Instructions: Stop taking 5 days before scheduled EGD. hyoscyamine sulfate [Levsin] 0.125 mg tablet 0.125 mg PO Q6H PRN (Reason: dyspepsia) Qty: 30 0RF ondansetron 4 mg tablet,disintegrating 4 mg PO Q6H PRN (Reason: nausea and vomiting) Qty: 20 0RF omeprazole 40 mg capsule,delayed release(DR/EC) 40 mg PO BID Qty: 60 2RF Rx Instructions: Stop taking 5 days before scheduled EGD. cholestyramine (with sugar) 4 gram powder in packet 4 g PO BID Qty: 60 2RF Rx Instructions: administer w/meal; avoid other meds within 1hr before or 4-6hr after dose baclofen 5 mg tablet 5 mg PO TID Qty: 90 2RF Stand Alone Forms: ED Work / School Excuse Primary Care Provider: Care Physician,No Primary Referrals: Care Physician,No Primary [Primary Care Provider] - Activity Restrictions/Additional Instructions: Please take the steroid to reduce sinus pressure and inflammation and use the Tessalon Perles to help with cough. If there is no improvement with taking the steroid medication and time then please start the doxycycline for concern of a bacterial sinus infection developing. Return to the ER should you have any further concerns Print Language: Slovak Disposition Disposition: Home, Self Care Discharge Date/Time: 09/05/24 05:21
[2024-09-05] MEDS: Benzonatate 100 MG Capsule 200 MG PO (05:01)
[2024-09-05] MEDS: dexAMETHasone 10 MG/ML Vial PO.IVFORM (05:01)
[2024-09-05 05:03] VITALS: BP 119/79; PULSE 104; RESP 18; TEMP 36.7; O2SAT 94
== END 2024-09-05 05:21 | disposition home or self-care (01) ==
PROVIDERS: Emergency Provider Emergency Medicine; Visit Provider Emergency Medicine
DX: J01.00 Acute maxillary sinusitis, unspecified (principal); B97.4 Respiratory syncytial virus as the cause of diseases classified elsewhere; K21.9 Gastro-esophageal reflux disease without esophagitis; Z79.899 Other long term (current) drug therapy; Z87.891 Personal history of nicotine dependence
CPT/HCPCS: 99283

== ENCOUNTER 2024-09-06 07:44 | Emergency (ER) | payer MEDICAID, SELFPAY ==
[2024-09-06 07:45] VITALS: BP 134/89; PULSE 92; RESP 15; TEMP 36.2; O2SAT 99; BMI 32.9
--- NOTE | 2024-09-06 08:03 | EX.ED.DYSGE1 ---
HPI History of Present Illness Chief Complaint: Other, Pain/Inj Informant: patient Narrative Narrative: 39-year-old female no seen past medical history. End of June she had a laparoscopic hysterectomy. Ovaries were left in place. She said she is under follow-up appointments she has been doing well. She was okay to have intercourse. Her and her significant other has had intercourse several times. The most recent event he states he was poked by something. She denies any pain. She denies any bleeding or discharge. She denies any dysuria. She does want to be checked to make sure there was not like a stitch or something that he was poked by. Prior similar symptoms: No Recent Illness/Hospitalization: No [facility] Medical History Wears glasses Anemia Smoker GERD (gastroesophageal reflux disease) Home Medications ?Medication ?Instructions ?Recorded ?Last Taken ?Type famotidine 20 mg tablet 20 mg PO BID PRN indigestion #60 05/26/24 05/31/24 Rx tabs omeprazole 40 mg capsule,delayed 40 mg PO BID #60 caps 06/05/24 Unknown Rx release baclofen 5 mg tablet 5 mg PO TID #90 tabs 06/12/24 Unknown Rx cholestyramine (with sugar) 4 gram 4 g PO BID #60 ea 06/12/24 Unknown Rx powder for susp in a packet hyoscyamine sulfate 0.125 mg 0.125 mg PO Q6H PRN dyspepsia #30 06/13/24 Unknown Rx tablet (Levsin) tabs ondansetron 4 mg disintegrating 4 mg PO Q6H PRN nausea and 06/13/24 Unknown Rx tablet vomiting #20 tabs benzonatate 200 mg capsule 200 mg PO TID PRN cough #30 caps 09/05/24 Unknown Rx doxycycline hyclate 100 mg capsule 100 mg PO BID 10 days #20 caps 09/05/24 Unknown Rx prednisone 20 mg tablet 40 mg (2 x 20 mg) PO DAILY 7 days 09/05/24 Unknown Rx #14 tabs Allergy/AdvReac Type Severity Reaction Status Date / Time Penicillins (PCN) Allergy Severe Anaphylaxis Verified 09/06/24 07:47 Surgical History H/O: hysterectomy Hx of tubal ligation Hx of tonsillectomy Social History Smoking Status: Former smoker details: Not recently substance use type: does not use ROS ROS ED ROS Narrative Denies any recent symptoms. Constitutional Constitutional ED: Denies chills or fever(s) Eyes Eyes: Denies blurry vision ENT ENT ED: Denies ear pain Cardiovascular Cardiovascular: Denies chest pain Respiratory/Chest Respiratory/Chest: Reports cough Gastrointestinal Gastrointestinal: Denies abdominal pain Genitourinary Genitourinary ED: Denies dysuria Musculoskeletal Musculoskeletal: Denies arthralgias Integumentary Denies abscess Neurologic Neurologic: Denies headache(s) Psychiatric Psychiatric: Denies anxiety Endocrine Endocrinology: Denies cold intolerance Hematologic/Lymphatic Hematologic/Lymphatic: Denies easy bruising Allergic/Immunologic Allergic/Immunologic ED: Denies mouth swelling EXAM Physical Exam Narrative Exam Narrative: Well-appearing 39-year-old female. Vital signs are stable afebrile. H EENT exam pupils round react light. Mytrex membranes. Unremarkable. Neck nontender no lymphadenopathy. Lungs clear to auscultation. Heart regular rate and rhythm rate about 90 no murmur. Abdomen soft, nontender, nondistended normal bowel sounds without peritoneal signs. Moving all 4 extremities. Nontender no edema. Back nontender. Neurologically she is awake and alert no focal motor deficits. She is a very benign exam has no reproducible pain. Const Vital Signs: 09/06/24 07:45 Temperature 97.2 F L Temperature Source Temporal Pulse Rate 92 Respiratory Rate 15 Blood Pressure 134/89 H Blood Pressure Mean 104 Pulse Ox 99 Oxygen Delivery Method Room Air Positive well nourished and well developed; Negative for cachectic, contractures or unkempt General Appearance ED: well developed and NAD; Negative for unkempt, cachectic, contractures, cyanotic, diaphoretic or pallor Nutritional Appearance: Negative for cachectic HEENT Reports moist mucous membranes Negative for trauma or tenderness Eyes PERRL and EOMs intact bilaterally General Eye ED: Negative for pale conjunctiva or scleral icterus Neck no lymphadenopathy, supple and no JVD General: Negative for tenderness Chest Wall inspection of chest normal and palpation of chest normal Resp normal respiratory effort and clear to auscultation bilaterally Effort and Inspection: Negative for retractions Auscultation: Negative for rales, rhonchi, wheezes or diminished lung sounds Cardio regular rate, regular rhythm, S1 normal heart sound, S2 normal heart sound and no murmurs GI normal to inspection, nondistended, normoactive bowel sounds, non-tender, non-distended and no masses Auscultation: normoactive bowel sounds Palpation: soft; Negative for tender, guarding or rebound tenderness present Back/Spine no CVA tenderness General Back: Negative for CVA tenderness Cervical Spine: Negative for cervical spine tenderness Thoracic Spine / Upper Back: Negative for thoracic spinal tenderness Lumbar Spine / Lower Back: Negative for lumbar spinal tenderness Extremity normal to inspection General Extremety ED: Negative for edema or tenderness General Extremity: Negative for edema Neuro oriented x3 and CN's II-XII intact bilaterally Sensorium / Orientation: alert; Negative for orientation impaired, lethargic or stuporous Motor Exam: strength 5/5 throughout Psych mental status grossly normal Appearance: Negative for unkempt Attitude: No agitated Mood & Affect: Negative for depressed, anxious or tearful Skin no rashes or lesions noted, no wounds and skin turgor normal General Skin Exam: Negative for elasticity normal, jaundice or pallor Lesions: No lesion noted Rashes: No rashes noted Trauma: Negative for abrasion Wounds: Negative for wounds noted MDM MDM MDM Narrative Medical decision making narrative: 39-year-old female she has no complaints. Hysterectomy end of June just over 2 months ago. During intercourse her significant other felt like he was poked by something. She has no pain. She does need labs. She is having no dysuria. Will do a pelvic exam and examine the cuff. She does not need any labs or imaging. Pelvic exam done female nurse present in the room. The cuff appears normal. There is no bleeding or discharge. Patient is having no discomfort. On the speculum exam I do not see anything abnormal. There is no dehiscence of the cuff. On bimanual exam I can feel a stitch at about 10:00 and also 1 around 2:00. The 1 at 10:00 is more prominent. She will follow-up with her OB if the stitches do not dissolve for further evaluation of this but she knows there is nothing at this time for us to do. History & Record Review Discussion w/independent historian: Patient Discharge Plan Triage Chief Complaint: Other, Pain/Inj ED Provider: Kosta Perez Dx/Rx/DC Orders Clinical Impression: Encounter for assessment of wound, History of hysterectomy Prescriptions: No Action famotidine 20 mg tablet 20 mg PO BID PRN (Reason: indigestion) Qty: 60 2RF Rx Instructions: Stop taking 5 days before scheduled EGD. hyoscyamine sulfate [Levsin] 0.125 mg tablet 0.125 mg PO Q6H PRN (Reason: dyspepsia) Qty: 30 0RF ondansetron 4 mg tablet,disintegrating 4 mg PO Q6H PRN (Reason: nausea and vomiting) Qty: 20 0RF doxycycline hyclate 100 mg capsule 100 mg PO BID 10 Days Qty: 20 0RF benzonatate 200 mg capsule 200 mg PO TID PRN (Reason: cough) Qty: 30 0RF prednisone 20 mg tablet 40 mg PO DAILY 7 Days Qty: 14 0RF omeprazole 40 mg capsule,delayed release(DR/EC) 40 mg PO BID Qty: 60 2RF Rx Instructions: Stop taking 5 days before scheduled EGD. cholestyramine (with sugar) 4 gram powder in packet 4 g PO BID Qty: 60 2RF Rx Instructions: administer w/meal; avoid other meds within 1hr before or 4-6hr after dose baclofen 5 mg tablet 5 mg PO TID Qty: 90 2RF Primary Care Provider: Care Physician,No Primary Referrals: Care Physician,No Primary [Primary Care Provider] - Activity Restrictions/Additional Instructions: Call and follow-up with your REHABILITATION THERAPIST from the rain. The stitches should dissolve. I feel 1 at about 10:00 and 2:00. If they do not dissolve your REHABILITATION THERAPIST and you can determine a plan if he wants to remove them. Print Language: Albanian Disposition Disposition: Home, Self Care
== END 2024-09-06 08:47 | disposition home or self-care (01) ==
PROVIDERS: Emergency Provider Emergency Medicine; Visit Provider Emergency Medicine
DX: Z48.816 Encounter for surgical aftercare following surgery on the genitourinary system (principal); Z90.710 Acquired absence of both cervix and uterus; Z87.891 Personal history of nicotine dependence
CPT/HCPCS: 99282

== ENCOUNTER 2024-10-07 12:25 | Day surgery (SDC) | payer MEDICAID, SELFPAY ==
[2024-10-07] VITALS (8 sets, daily range): BP systolic 101–106; BP diastolic 66–78; PULSE 90–112; RESP 16–24; TEMP 36.6–36.9; O2SAT 95–100; BMI 33.0
--- NOTE | 2024-10-07 13:07 | PCM.PRE.AN2 ---
ASA Classification* ASA Classification ASA Classification: 2 Assessment & Plan Anesthesia* Anesthesia Assessment Anesthesia Assessment: Discussed sedation and/or anesthesia options, risks, benefits, and alternatives with patient/parents/legal guardian/POA. Questions invited. The patient/parents/legal guardian/POA seems to understand and agrees to proceed with anesthesia plan. Reviewed the physical assessment, medical history, allergy history and patient home medications list prior to surgery/procedure/anesthetic and documented any changes. Performed airway and anesthesia risk assessments. Anesthesia Type Anesthesia Type: MAC History Source History Obtained from:: Patient and Chart Anesthesia Focused Assessment* Temperature: 98.5 F Pulse Rate: 99 Blood Pressure: 106/71 Respiratory Rate: 16 Pulse Ox: 100 Oxygen Delivery Method: Room Air Airway Assessment Mouth opens: >3 cm Mallampati Score: IV Teeth Condition: Intact Neck Range of motion (ROM): Full ROM Focused Labs Anesthesia Preop lab: CBC WBC 7.6 K/mm3 (4.4-11.0) 06/13/24 07:50 06/13/24 RBC 4.50 M/mm3 (4.2-5.4) 06/13/24 07:50 06/13/24 Hgb 13.3 g/dL (12.0-15.0) 06/13/24 07:50 06/13/24 Hct 41.2 % (37-47) 06/13/24 07:50 06/13/24 Plt Count 351 K/mm3 (150-450) 06/13/24 07:50 06/13/24 CHEMISTRY Potassium 3.6 mmol/L (3.5-5.1) 06/13/24 07:50 06/13/24 Sodium 140 mmol/L (136-145) 06/13/24 07:50 06/13/24 BUN 13 mg/dL (7-18) 06/13/24 07:50 06/13/24 Creatinine 0.85 mg/dL (0.55-1.02) 06/13/24 07:50 06/13/24 Glucose 92 mg/dL (74-106) 06/13/24 07:50 06/13/24 COAG Pre-Assessment Diagnosis/Proposed Procedure Planned Operative Procedure(s): EGD with Botox injections. Anesthesia History Anesthesia History - certified medical asst: Anesthesia History - certified medical asst Hx Hospitalization No 10/02/24 15:11 Any Problems With Anesthesia No 10/02/24 15:11 Cholinesterase deficiency No 10/02/24 15:11 You/Your Family Experience No 10/02/24 15:11 fever (hyperthermia) with Relationship Recent Exposure to Contagious No 10/07/24 12:44 Disease Does patient have nerve No 10/02/24 15:11 stimulator Patient instructed to have device shut off --Does patient have Pacemaker No 10/07/24 12:44 or ICD? When Was Last Pacemaker Check QUESTION #4 FULL TEXT: You/Your Family Experience fever (hyperthermia) with Anesthesia Last Oral Intake Last Oral intake: Last Oral Intake NPO since 00:00 10/07/24 12:44 Meds taken in AM with sips of water? Meds patient instructed to take am of surgery PONV PONV - certified medical asst: PONV - certified medical asst Female Yes 10/02/24 15:11 HX of Motion Sickness Yes 10/02/24 15:11 HX of N/V After Surgery No 10/02/24 15:11 Non-Smoker Yes 10/02/24 15:11 Duration of Surgery greater No 10/02/24 15:11 than 60 minutes Number of Risk Factors 3 10/02/24 15:11 PONV Score Moderate Risk 10/02/24 15:11 Height & Weight Height & Weight: Anesthesia: Height & Weight Height 5 ft 2 in 10/07/24 12:44 Weight: 82.1 kg 10/07/24 12:44 Body Mass Index (BMI) 33.0 10/07/24 12:44 Respiratory Assessment Respiratory Assessment - certified medical asst: Respiratory Tract Infection Hx - certified medical asst Hx Respiratory Tract Infection No 10/02/24 15:11 STOP Sleep Apnea STOP Sleep Apnea - certified medical asst: STOP Sleep Apnea - certified medical asst Hx Hypertension No 10/02/24 15:11 Hx Sleep Apnea No 10/02/24 15:11 CPAP BIPAP Do you snore loudly (louder No 10/02/24 15:11 than talking or can be heard Do you often feel tired/ No 10/02/24 15:11 fatigued/ sleepy during daytime? Has anyone observed you stop No 10/02/24 15:11 breathing during sleep? STOP Results Negative 10/02/24 15:11 QUESTION #5 FULL TEXT : Do you snore loudly (louder than talking or can be heard through closed doors)? Tobacco Use History Tobacco Use History - certified medical asst: Tobacco Use History - certified medical asst Tobacco Use Smoking Status Former smoker 10/02/24 15:11 Hx Tobacco Use Yes 10/02/24 15:11 Years Smoking Packs Smoked per Day Smoking Cessation Date was Yes - quit smoking within 15 10/02/24 15:11 within the last 15 years years Hx Smoking Cessation Date 09/03/22 10/02/24 15:11 Hx Smoking Cessation Counseling Hematologic Medial History Hematologic Hx - certified medical asst: Hematologic Medical Hx - political consultant Hx of Blood Transfusion No 10/02/24 15:11 Hx of Transfusion in last 3 No 10/02/24 15:11 Months Date of Last Transfusion (if within last 3 months) Ever experience any problems No 10/02/24 15:11 with transfusion(s)? Specify any problems Hx of Preganancy in last 3 N/A 10/02/24 15:11 Months Nurse Filling Out Transfusion NBUCHER 10/02/24 15:11 & Questions: Date: 10/02/24 10/02/24 15:11 Time: 15:12 10/02/24 15:11 Patient unable to answer at this time (ie. confused, unrespo /Reproduction History /Reproductive History - certified medical asst: /Reproductive Hx- certified medical asst Hx Now No 10/02/24 15:11 Gestational Age (in weeks): EDC: Hx Hx Para Hx Section SAB No 10/02/24 15:11 PFSH Medical History Wears glasses Anemia Smoker GERD (gastroesophageal reflux disease) Home Medications ?Medication ?Instructions ?Recorded ?Last Taken ?Type omeprazole 40 mg capsule,delayed 40 mg PO BID #60 caps 09/15/24 10/06/24 Rx release cetirizine 10 mg tablet (24Hour 10 mg PO DAILY 10/02/24 Unknown History Allergy) Allergy/AdvReac Type Severity Reaction Status Date / Time dicyclomine Allergy Severe Nausea/Vom/ Verified 10/07/24 12:43 Diarrhea Penicillins (PCN) Allergy Severe Anaphylaxis Verified 10/07/24 12:43 Surgical History History of esophagogastroduodenoscopy (EGD) H/O: hysterectomy (06/26/24) Hx of tubal ligation Hx of tonsillectomy Social History Smoking Status: Former smoker details: Not recently substance use type: does not use Review of Systems (Anesthesia) ROS Narrative System reviewed and no additional complaints, except as documented.
--- NOTE | 2024-10-07 13:07 | PCM.HP.STD ---
HPI - General General Date of Admission: 10/07/24 Date of Service: 10/07/24 Chief Complaint: dysphagia HPI Narrative LINDA ALBA, is a 39 F who presents with endoscopic evaluation of dysphagia and chronic gastritis. EGD 06.05.24 Z-line irregular, 39 cm from the incisors. Biopsied Esophageal mucosal changes suspicious for eosinophilic esophagitis. Benign-appearing esophageal stenosis. Dilated. Small hiatal hernia. Chronic gastritis. Biopsied. Erythematous duodenopathy. Biopsied. Biopsies were taken with a cold forceps for evaluation of eosinophilic esophagitis. [facility] [place] ED 06.13.24 abd pain abd/pelvis CT 06.13.24 4.7 cm x 4 cm right ovarian cyst. Scattered sigmoid diverticula. OV 07.15.24 pt reports that she had a hysterectomy 3 weeks ago and is still recovering. Reports continued symptoms of reflux and feeling like something is stuck in her throat. Pt is wondering if there are any other medications she can try. [facility] Medical History Wears glasses Anemia Smoker GERD (gastroesophageal reflux disease) Home Medications ?Medication ?Instructions ?Recorded ?Last Taken ?Type omeprazole 40 mg capsule,delayed 40 mg PO BID #60 caps 09/15/24 10/06/24 Rx release cetirizine 10 mg tablet (24Hour 10 mg PO DAILY 10/02/24 Unknown History Allergy) Allergy/AdvReac Type Severity Reaction Status Date / Time dicyclomine Allergy Severe Nausea/Vom/ Verified 10/07/24 12:43 Diarrhea Penicillins (PCN) Allergy Severe Anaphylaxis Verified 10/07/24 12:43 Surgical History History of esophagogastroduodenoscopy (EGD) H/O: hysterectomy (06/26/24) Hx of tubal ligation Hx of tonsillectomy Social History Smoking Status: Former smoker details: Not recently substance use type: does not use ROS Constitutional Constitutional: Denies fatigue, fever(s), poor appetite, weight gain or weight loss Gastrointestinal Gastrointestinal: Denies belching, bloating, change in bowel habits, change in stool character, chewing difficulty, coffee ground emesis, constipation, cramping, diarrhea, dyspepsia, dysphagia, early satiety, excessive flatus, fecal incontinence, heartburn, hematemesis, hematochezia, hemorrhoids, loose stools, melena, nausea, odynophagia, rectal bleeding, tenesmus, vomiting or weight changes Vital Signs Vital Signs Vital Signs: 10/07/24 12:44 10/07/24 12:44 Temperature 98.5 F Temperature Source Temporal Pulse Rate 99 Respiratory Rate 16 Respiratory Pattern Normal Blood Pressure 106/71 Blood Pressure Mean 82 Blood Pressure Source Monitor Blood Pressure Position Semi-Fowlers Blood Pressure Location Left Arm Pulse Ox 100 Oxygen Delivery Method Room Air Weight Weight: 181 lb Body Mass Index (BMI) 33.0 Physical Exam Const alert, oriented x3, no apparent distress and healthy appearing General Appearance: cooperative GI normal to inspection, nondistended, normoactive bowel sounds, soft to palpation, non-tender and non-distended Percussion: normal to percussion Rectal Exam: deferred Assessment & Plan Assessment/Plan (1) GERD (gastroesophageal reflux disease): QUALIFIERS: Esophagitis presence: esophagitis presence not specified Qualified Code(s): K21.9 - Gastro-esophageal reflux disease without esophagitis (2) Dysphagia: PLAN: Plan Assessment and Plan (1) Gastroesophageal reflux disease: Status: Acute Qualifiers: Esophagitis presence: esophagitis presence not specified Qualified Code(s): K21.9 - Gastro-esophageal reflux disease without esophagitis Comment: NOT CONTROLLED WITH MEDS Plan: LINDA ALBA, is a 38 F who presents to the office today for establishment with [facility] for complaints of food moving up and down in her throat. Differential diagnoses include: EoE, GERD, esophageal dysmotility, LES dysfunction, gastroparesis, gastric outlet obstruction. GET, 1 hr test to look for emptying time esophageal manometry to rule out achalasia EGD for tissue Bx to check for EoE, alarm symptom of 7 pound weight loss in 1 week. Biopsies of the stomach which is positive for mild gastritis without H. pylori and test metaplasia, dysplasia or cancer. Biopsies of her small bowel did not show any abnormalities. She underwent esophageal motility studies in the diagnosis from esophageal motility study was esophageal gastric junction outflow disorder. She has been tried on baclofen, PPI, famotidine without any resolution. I think she would benefit from Botox therapy.
[2024-10-07] MEDS: 0.9% Saline Lock 10 ML Syringe IV (13:29)
[2024-10-07] MEDS: 0.9% Normal Saline (Pres. free 10 ML Vial (13:29)
[2024-10-07] MEDS: Botulinum Toxin A 100 Units Vial IJ (13:29)
--- NOTE | 2024-10-07 13:42 | OP.CCLET_ITS ---
10/07/2024 No Primary Care Physician Re : Upper GI endoscopy procedure for Jamila Almonte Dear Care Physician This procedure was performed on Monday, October 07, 2024. My impressions and recommendations are as follows: Impressions : - Abnormal esophageal motility, consistent with achalasia. Injected with botulinum toxin. - Medium-sized hiatal hernia. - Normal first portion of the duodenum. - No specimens collected. Recommendations : - Discharge patient to home. - Resume previous diet. - Continue present medications. - Await pathology results. My findings are described in the full procedure note, which is enclosed. If I can be of further assistance, please feel free to contact me at . Sincerely, Fredo Welch, 10/07/2024 1:41:49 PM This report has been signed electronically.
--- NOTE | 2024-10-07 13:42 | OP.EGD_ITS ---
Patient Name: Jamila Almonte Procedure Date: 10/07/2024 1:16 PM Date of : 1985 Age: 39 Procedure: Upper GI endoscopy Indications: Esophageal dysphagia, Failure to respond to medical treatment Providers: Fredo Welch DO Referring MD: Fredo Welch DO Medicines: Monitored Anesthesia Care Patient Profile: This is a 39 year old female. Refer to note in patient chart for documentation of history and physical. Patient has symptoms of dysphagia with both liquids and solids. Her most recent EGD for biopsy, EGD for dilation and high resolution esophageal manometry was within the past six months. Complications: No immediate complications. Procedure: Pre-Anesthesia Assessment: - Prior to the procedure, a History and Physical was performed, and patient medications and allergies were reviewed. The patient is competent. The risks and benefits of the procedure and the sedation options and risks were discussed with the patient. All questions were answered and informed consent was obtained. Patient identification and proposed procedure were verified by the physician in the pre-procedure area. Mental Status Examination: alert and oriented. Airway Examination: normal oropharyngeal airway and neck mobility. Respiratory Examination: clear to auscultation. CV Examination: normal. Prophylactic Antibiotics: The patient does not require prophylactic antibiotics. Prior Anticoagulants: The patient has taken no anticoagulant or antiplatelet agents except for NSAID medication. ASA Grade Assessment: II - A patient with mild systemic disease. After reviewing the risks and benefits, the patient was deemed in satisfactory condition to undergo the procedure. The anesthesia plan was to use monitored anesthesia care (MAC). Immediately prior to administration of medications, the patient was re-assessed for adequacy to receive sedatives. The heart rate, respiratory rate, oxygen saturations, blood pressure, adequacy of pulmonary ventilation, and response to care were monitored throughout the procedure. The physical status of the patient was re-assessed after the procedure. After obtaining informed consent, the endoscope was passed under direct vision. Throughout the procedure, the patient's blood pressure, pulse, and oxygen saturations were monitored continuously. The gastroscope was introduced through the mouth, and advanced to the second part of duodenum. The upper GI endoscopy was accomplished without difficulty. The patient tolerated the procedure well. Scope In: 1:25:28 PM Scope Out: 1:31:12 PM Total Procedure Duration Time 0 hours 5 minutes 44 seconds Findings: Abnormal motility was noted in the middle third of the esophagus and in the lower third of the esophagus. The cricopharyngeus was abnormal. There is a decrease in motility of the esophageal body. The distal esophagus/lower esophageal sphincter is spastic, but gives up passage to the endoscope. Area was successfully injected with 100 units botulinum toxin. A medium-sized hiatal hernia was present. No other significant abnormalities were identified in a careful examination of the stomach. The first portion of the duodenum was normal. Impression: - Abnormal esophageal motility, consistent with achalasia. Injected with botulinum toxin. - Medium-sized hiatal hernia. - Normal first portion of the duodenum. - No specimens collected. Recommendation: - Discharge patient to home. - Resume previous diet. - Continue present medications. - Await pathology results. Procedure Code(s): --- Professional --- 09965, Esophagogastroduodenoscopy, flexible, transoral; with directed submucosal injection(s), any substance CPT copyright 2021 [employer]. All rights reserved. The codes documented in this report are preliminary and upon pig iron loader review may be revised to meet current compliance requirements. Fredo Welch DO 10/07/2024 1:41:49 PM This report has been signed electronically. Number of Addenda: 0 Note Initiated On: 10/07/2024 1:16 PM
--- NOTE | 2024-10-07 13:42 | PCM.POST.ANE ---
Anesthesia: Postop Eval I Current Vital Signs Temperature: 97.8 F Pulse Rate: 96 Blood Pressure: 106/78 Respiratory Rate: 24 Pulse Ox: 97 Oxygen Delivery Method: Room Air Assessment Airway patent: Yes Spontaneous unlabored respirations: Yes Mental status: Awake and Calm nausea: No Vomiting: No Anesthesia Complication: No Fluid Hydration Crystalloid volume administer (ml): 10 Total IV fluid infused: 10 Progress Note Anesthesia document: Postop Eval 1 completed: Yes
--- NOTE | 2024-10-07 15:04 | POSTOPAN2_ITS ---
Anesthesia Postop Eval I Sum Postop Eval Completion status Anesthesia document: Postop Eval 1 completed: Yes Anesthesia Postop Eval I Summary Anesthesia Postop Eval I Summary: Anesthesia Postop Eval I: Assessment Summary Airway patent Yes 10/07/24 13:[address] TECHNOLOGIST.[email or web address] Spontaneous unlabored Yes 10/07/24 13:[address] TECHNOLOGIST.DBAK respirations Mental status Awake,Calm 10/07/24 13:[address] TECHNOLOGIST.DBAK nausea No 10/07/24 13:[address] TECHNOLOGIST.DBAK Vomiting No 10/07/24 13:[address] TECHNOLOGIST.DBAK Anesthesia Postop Eval I: Fluid Summary Crystalloid volume administer 10 10/07/24 13:[address] TECHNOLOGIST.DBAK (ml) Colloids volume administered ( ml) Blood Product volume administered (ml) Total IV fluid infused 10 10/07/24 13:[address] TECHNOLOGIST.DBAK Anesthesia Postop Eval I: Summary Notes Anesthesia Complication No 10/07/24 13:[address] TECHNOLOGIST.DBAK Anesthesia Complication Comment: Post-operative progress note Anesthesia: Postop Eval II Evaluation Mental status: Awake and Calm Pain Level: 0 nausea: No Vomiting: No
--- NOTE | 2024-10-07 15:04 | PCM.POSTANE2 ---
Anesthesia Postop Eval I Sum Postop Eval Completion status Anesthesia document: Postop Eval 1 completed: Yes Anesthesia Postop Eval I Summary Anesthesia Postop Eval I Summary: Anesthesia Postop Eval I: Assessment Summary Airway patent Yes 10/07/24 13:42 CLOTH [email or web address].[email or web address] Spontaneous unlabored Yes 10/07/24 13:42 CLOTH REELER.DBAK respirations Mental status Awake,Calm 10/07/24 13:42 CLOTH REELER.DBAK nausea No 10/07/24 13:42 CLOTH REELER.DBAK Vomiting No 10/07/24 13:42 CLOTH REELER.DBAK Anesthesia Postop Eval I: Fluid Summary Crystalloid volume administer 10 10/07/24 13:42 CLOTH REELER.DBAK (ml) Colloids volume administered ( ml) Blood Product volume administered (ml) Total IV fluid infused 10 10/07/24 13:42 CLOTH REELER.DBAK Anesthesia Postop Eval I: Summary Notes Anesthesia Complication No 10/07/24 13:42 CLOTH REELER.DBAK Anesthesia Complication Comment: Post-operative progress note Anesthesia: Postop Eval II Evaluation Mental status: Awake and Calm Pain Level: 0 nausea: No Vomiting: No
== END 2024-10-07 14:10 | disposition home or self-care (01) ==
LOC: EN 12:25 → AC 12:27
PROVIDERS: Referring Provider Internal Medicine Gastroenterology; Visit Provider Internal Medicine Gastroenterology
PROC: 0DJ08ZZ Inspection of Upper Intestinal Tract, Via Natural or Artificial Opening Endoscopic (ICD-10-PCS; CPT 43235; principal; 2024-10-07 13:25)
DX: K22.89 Other specified disease of esophagus (principal); K21.9 Gastro-esophageal reflux disease without esophagitis; K44.9 Diaphragmatic hernia without obstruction or gangrene; Z79.899 Other long term (current) drug therapy; Z87.891 Personal history of nicotine dependence
CPT/HCPCS: 43236; A4216; J0585

== ENCOUNTER 2025-02-26 17:30 | Outpatient (RCR) | payer MEDICAID, SELFPAY ==
--- NOTE | 2025-02-02 08:42 | HP.PTEVAL_ITS ---
Patient's Visit Information Visit Information Visit Information: LINDA ALBA is a 39 year old F referred to Physical Therapy by PRAVEEN Walden with a diagnosis of R hip impingement/pain in R hip. Date of Evaluation: 02/02/25 Physical Therapist: ALEIDA Callejas Visit Plan Frequency: 2x /Week Duration: 6 Weeks Plan: Pt is doing PT to get her MRI 2X/ week for 6 weeks for R hip AROM, B hip strength and core strength, gait training to work on increase hip extension and equal stance time on B LE's with HEP HEP: Bridges, SLR, and clam shells Subjective Subjective: Pt moved out here from [facility] and saw a orthopedic Dr out there and was told she has 2 cysts in her hip and has had 2 cortisone shots. If she goes and sits for a long time and goes to walk pain will shoot down her leg to her foot and that is every time. She has problems sitting in butterfly sitting. Standing for awhile and then going to stand she will get the pain. It has given out twice. She is on an anti-inflammatory and has taken the edge off of it. She was told that she has to go to PT before MRI etc. She sees the Dr 1 week from today. Today she is wobbling a little because it hurts. The pain does not wake her up at night. She reports that it is sharp pain and it is in the joint. 10/10 pain if she steps down on it wrong. She is able to go up and down the stairs and if she does too many it will be painful but as long as she takes her time she is ok. She is on her feet all day and fine but worse when she goes to sit down and then goes to get back up. Pain R hip pain: Pain Intensity (Out of 10): 4 Objective Objective: Gait: walks with short stride and decrease stance time on the R LE with decrease heel to toe gait pattern Pt is able to heel and toe raise with no issue Pt is able to SLB 30 sec B R hip flexion AROM some pain into end range flexion and ER with painful end feel. L hip full ROM with no pain LE MMT: R hip flex 14.4 and L 13.4 R knee ext 20.8 and L 21.9 R knee flex 13.7 and L 12.5 R Hip abd 14.3 and L 14.3 R hip ext 15.3 and L 14.1 Sit to stand: able to get up on first attempt without UE support Stairs: up and down recip with hand rail with some hesitancy but still smooth pattern Balance/Special Test Scores Lower Extremity Functional Score: 60 Goals Goal 1:: I HEP Goal Time Frame: 4-6 Weeks Goal 2:: Improve gait pattern to not walk with decreased stance time on the R LE Goal Time Frame: 4-6 Weeks Goal 3:: Improve R hip strength (at the time of the eval: LE MMT: R hip flex 14.4 and L 13.4 R knee ext 20.8 and L 21.9 R knee flex 13.7 and L 12.5 R Hip abd 14.3 and L 14.3 R hip ext 15.3 and L 14.1). Goal Time Frame: 4-6 Weeks Rehabilitation Potential Rehabilitation Potential: Good Anticipated Interventions Patient/Client Instruction: Educate patient on: Condition and Plan of Care For the Purpose of:: To decrease pain, To increase ROM, To improve nutrient delivery to tissue, To improve muscle performance and motor function, To improve ability to perform ADL's, To increase tolerance to activity/condition/position, To improve performance and independence with ADL's, To decrease level of supervision to perform tasks, To improve ability of physical actions for home/community/work/leisure, To improve gait and locomotor functions, To improve health of tissue, To decrease soft tissue restriction and To increase flexibility/ROM Therapeutic Exercise to Include: Strength training, Body mechanics, Postural training, Flexibilty training, Gait and locomotor training, Passive ROM, Active ROM and Dynamic Lumbar Stabilization For the Purpose of:: To decrease pain, To increase ROM, To improve nutrient delivery to tissue, To improve muscle performance and motor function, To improve ability to perform ADL's, To increase tolerance to activity/condition/position, To improve performance and independence with ADL's, To decrease level of supervision to perform tasks, To improve ability of physical actions for home/community/work/leisure, To improve gait and locomotor functions, To improve health of tissue, To decrease soft tissue restriction, To increase flexibility/ROM and To improve endurance Functional Training to Include: Gait training For the Purpose of:: To improve gait and locomotor functions Manual Therapy Techniques to Include: Passive ROM For the Purpose of:: To decrease pain, To increase ROM, To improve nutrient delivery to tissue, To improve muscle performance and motor function, To improve ability to perform ADL's, To increase tolerance to activity/condition/position, To improve performance and independence with ADL's, To decrease level of supervision to perform tasks, To improve gait and locomotor functions and To increase flexibility/ROM Text: Thank you for the opportunity to evaluate your patient. For Medicare and Medicare HMO plans, please review the plan of care and approve it. It will need to be FAXED BACK to us at [phone] for Medicare purposes. For Medicare only, by signing this I certify the plan of care. Please let me know if there are questions or concerns regarding this plan of care. Physician Signature: Date:
--- NOTE | 2025-06-02 08:36 | HP.PTDCNRP_ITS ---
Patient Information Patient Information: LINDA ALBA was seen in my office for initial evaluation on 02/02/25. The following Plan of Care was established for this patient: POC Established Initial Frequency: 2x /Week Initial Duration: 6 Weeks Anticipated Interventions Patient/Client Instruction: Educate patient on: Condition and Plan of Care For the Purpose of:: To decrease pain, To increase ROM, To improve nutrient delivery to tissue, To improve muscle performance and motor function, To improve ability to perform ADL's, To increase tolerance to activity/condition/position, To improve performance and independence with ADL's, To decrease level of supervision to perform tasks, To improve ability of physical actions for home/community/work/leisure, To improve gait and locomotor functions, To improve health of tissue, To decrease soft tissue restriction and To increase flexibility/ROM Therapeutic Exercise to Include: Strength training, Body mechanics, Postural training, Flexibilty training, Gait and locomotor training, Passive ROM, Active ROM and Dynamic Lumbar Stabilization For the Purpose of:: To decrease pain, To increase ROM, To improve nutrient delivery to tissue, To improve muscle performance and motor function, To improve ability to perform ADL's, To increase tolerance to activity/condition/position, To improve performance and independence with ADL's, To decrease level of supervision to perform tasks, To improve ability of physical actions for home/community/work/leisure, To improve gait and locomotor functions, To improve health of tissue, To decrease soft tissue restriction, To increase flexibility/ROM and To improve endurance Functional Training to Include: Gait training For the Purpose of:: To improve gait and locomotor functions Manual Therapy Techniques to Include: Passive ROM For the Purpose of:: To decrease pain, To increase ROM, To improve nutrient delivery to tissue, To improve muscle performance and motor function, To improve ability to perform ADL's, To increase tolerance to activity/condition/position, To improve performance and independence with ADL's, To decrease level of supervision to perform tasks, To improve gait and locomotor functions and To increase flexibility/ROM Last Seen Last Seen: This patient was last seen in our office 03/13/25. Pertinent comments regarding their Physical therapy will appear below: NISHA PT At this point I will be discontinuing this patient from physical therapy. I would be happy to see this patient again in the future if found appropriate by t he physician. Thank you! Mary Kate Reid, ALEIDA Balance/Gait/Functional tests Balance/Special Test Scores Lower Extremity Functional Score: 60
== END 2025-02-26 19:00 | disposition home or self-care (01) ==
LOC: PT 17:30
PROVIDERS: Referring Provider Nurse Practitioner Family; Visit Provider Nurse Practitioner Family
DX: M25.851 Other specified joint disorders, right hip (principal); M25.551 Pain in right hip
CPT/HCPCS: 97110; 97161

== ENCOUNTER → 2025-03-23 | Outpatient (CLI) | payer MEDICAID, SELFPAY ==
--- NOTE | 2025-03-23 10:40 | MRI_ITS ---
PROCEDURE: LOWER EXT JOINT ONLY (ROUTINE) 03/23/2025 REASON FOR EXAM: WORSENING HIP PAIN, HX CYST TECHNIQUE: LOWER EXT JOINT ONLY (ROUTINE) Multiplanar and multisequence images were obtained without IV contrast administration. COMPARISON: COMPARISON : December 29, 2024 x-ray FINDINGS: Bone marrow and osseous structures: There is a 0.7 x 0.5 cm subcortical cyst in the anterior lateral acetabulum with smaller adjacent subcortical cysts in the anterior acetabulum. There is no abnormal marrow edema to suggest stress reaction or fracture. There is no MR evidence of avascular necrosis. 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 Labrum: No discrete labral tear or paralabral cyst. Hip joint: There is no intra-articular body. The ligamentum teres is unremarkable. Hip abductors: The gluteus medius and minimus tendons show mild distal tendinopathy without full-thickness tear, with increased fluid in the overlying bursa, with trochanteric bursitis. Iliopsoas tendon: Intact without tendinosis or tear. No iliopsoas bursitis. There is a 5.0 by 3.6 cm cyst in the right adnexa. There are follicles in the left ovary measuring 1.7 and 1.4 cm. There is a trace amount of free fluid in the right pelvis measuring 1.5 cm in depth, axial image 25/44. MRI/Lower Ext Joint Only (Routine) IMPRESSION: There is a 0.7 x 0.5 cm subcortical cyst in the anterior lateral acetabulum wit h smaller adjacent subcortical cysts in the anterior acetabulum. 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 The gluteus medius and minimus tendons show mild distal tendinopathy without fu ll-thickness tear, with increased fluid in the overlying bursa, with trochanteric bursitis. There is a 5.0 by 3.6 cm cyst in the right adnexa. Follow-up is recommended. There are follicles in the left ovary measuring 1.7 and 1.4 cm. There is a trace amount of free fluid in the right pelvis measuring 1.5 cm in d epth, axial image 25/44. [facility]
== END | disposition home or self-care (01) ==
LOC: OPMRI 10:31
PROVIDERS: Referring Provider Nurse Practitioner Family; Visit Provider Nurse Practitioner Family
DX: M25.851 Other specified joint disorders, right hip (principal)
CPT/HCPCS: 73721

== ENCOUNTER 2025-04-30 07:53 | Emergency (ER) | payer MEDICAID, SELFPAY ==
[2025-04-30 07:54] VITALS: BP 116/80; PULSE 69; RESP 14; TEMP 35.6; O2SAT 98; BMI 33.0
--- NOTE | 2025-04-30 08:09 | EKG12_ITS ---
Test Reason : CP Blood Pressure : */* mmHG Vent. Rate : 61 BPM Atrial Rate : 61 BPM P-R Int : 126 ms QRS Dur : 82 ms QT Int : 402 ms P-R-T Axes : 13 52 46 degrees QTcB Int : 404 ms Normal sinus rhythm Normal ECG Confirmed by ISABELA EARL ([id number]), digital editor RAKESH RUIZ ([id number]) on 05/05/2025 6:32:36 AM Referred By: SHERON Confirmed By: ISABELA EARL
--- NOTE | 2025-04-30 08:18 | EDS_ITS ---
HPI History of Present Illness Chief Complaint: Chest Other Narrative Narrative: Patient is a 39-year-old female presenting to the emergency department for chest pain that started yesterday. Patient has a past medical history of of GERD and dysphagia. No past medical history of hypertension, hyperlipidemia or diabetes. No family history of sudden cardiac . Patient states yesterday around noon she was laughing at something and folic she pulled a muscle in the middle of her chest. States that it hurts worse with movement including raising her arms above her head. She denies any diaphoresis, shortness of breath, nausea or vomiting. Denies any history of PE or DVT. [facility] Medical History Wears glasses Anemia Smoker GERD (gastroesophageal reflux disease) Home Medications ?Medication ?Instructions ?Recorded ?Last Taken ?Type cetirizine 10 mg tablet (24Hour 10 mg PO DAILY 5 Unknown History Allergy) diclofenac potassium 50 mg tablet 50 mg PO BID PRN lex n #60 tabs 02/09/25 Unknown Rx omeprazole 40 mg capsule,delayed 40 mg PO BID #60 caps 04/01/25 Unknown Rx release Allergy/AdvReac Type Severity Reaction Status Date / Time dicyclomine Allergy Severe Nausea/Vom/ Verified 04/30/25 07:53 Diarrhea Penicillins (PCN) Allergy Severe Anaphylaxis Verified 04/30/25 07:53 bee venom protein (honey AdvReac Other Verified 04/30/25 07:53 bee) (bees) morphine AdvReac Other Verified 04/30/25 07:53 Surgical History History of esophagogastroduodenoscopy (EGD) H/O: hysterectomy (06/26/24) Hx of tubal ligation Hx of tonsillectomy Social History Smoking Status: Former smoker details: Not recently substance use type: does not use ROS ROS ED ROS Narrative see HPI EXAM Physical Exam Narrative Exam Narrative: Vital signs: Reviewed General: Alert and oriented. No acute distress HEENT: Head is normocephalic and atraumatic, sinuses nontender, pupils equal round and reactive. Nares are patent. Oropharynx and throat exams normal. Neck: Supple without lymphadenopathy nontender Cardiovascular: Regular rate and rhythm, no murmurs. No rubs or gallops. Normal S1 and S2 Respiratory: Clear to auscultation bilaterally. No wheezes, rales, rhonchi Chest: Midsternal chest wall is stable to palpation. Reproducible pain on palpation. No erythema. No crepitus. Abdominal: Soft and nontender. Normal bowel sounds. No guarding or rebound. Nonsurgical abdomen Extremities: No tenderness. No bruising. Normal range of motion. Normal sensation. Skin: No rash or redness. Neurological: Cranial nerves II through XII are grossly intact. Normal strength and sensation. Normal cerebellar function The rest of the physical exam is unremarkable Const Vital Signs: 04/30/25 07:54 04/30/25 08:06 04/30/25 09:53 Temperature 96.1 F L Temperature Source Temporal Pulse Rate 69 71 Respiratory Rate 14 16 Respiratory Effort Normal Non-Labored Blood Pressure 116/80 110/74 Blood Pressure Mean 92 86 Pulse Ox 98 98 Oxygen Delivery Method Room Air Room Air 04/30/25 10:05 Temperature 97.5 F L Temperature Source Pulse Rate 71 Respiratory Rate 16 Respiratory Effort Blood Pressure 110/74 Blood Pressure Mean 86 Pulse Ox 98 Oxygen Delivery Method MDM MDM MDM Narrative Medical decision making narrative: Patient is a 39-year-old female presenting to the emergency department for chest pain. Patient was seen and examined. Vitals are stable. Patient resting in bed comfortably no acute distress. EKG shows normal sinus rhythm, no dysrhythmia. No ischemic changes. Patient given IM Toradol. Chest x-ray and single troponin ordered. The pain worsens with movement specifically if she raises her arms above her heads or stretches her chest wall. She is not having any shortness of breath, no hypoxia or tachycardia to suspect PE. PERC negative. Chest x-ray with no acute abnormalities. Troponin within normal limits. Patient updated on the negative workup. Likely MSK in nature. Instructed to take Tylenol or Motrin for pain control at home. Patient discharged from the Emergency Department. I do not feel that the patient's evaluation reveals any acute reason for admission at this time. I instructed them to either follow-up with their primary care physician or promptly return to the Emergency Department for reevaluation should symptoms worsen or new symptoms develop. I explained what symptoms would indicate the need to return to the emergency department. Shared decision making was used. The patient voiced understanding of the treatment plan and is agreeable with it. Clinical impression Chest wall pain History & Record Review Discussion w/independent historian: Patient Lab Data Attestation: I reviewed the patient's lab results. Labs: Laboratory Results - last 24 hr 04/30/25 08:26 Troponin T High Sens < 6 Radiography Chest X-Ray - ED: 1 View, Read by ED Physician, Normal, No Acute Disease and No Infiltrates Diagnostic Testing: Clinical Impression(s) from Imaging Studies Chest X-Ray 04/30/25 08:39 IMPRESSION: No Acute Findings. Reading Location: [facility] Discharge Plan Triage Chief Complaint: Chest Other ED Provider: Marcelle Malloy Dx/Rx/DC Orders Clinical Impression: Chest pain Instructions: ED Strain Chest Wall Prescriptions: No Action diclofenac potassium 50 mg tablet 50 mg PO BID PRN (Reason: pain) Qty: 60 1RF cetirizine [24Hour Allergy] 10 mg tablet 10 mg PO DAILY omeprazole 40 mg capsule,delayed release(DR/EC) 40 mg PO BID Qty: 60 3RF Primary Care Provider: Care Physician,No Primary Referrals: Robel Alfaro MD [Med Staff - On Call] - 2 Days Care Physician,No Primary [Primary Care Provider] - Activity Restrictions/Additional Instructions: You can take NSAIDs at home this includes Aleve, Motrin, Advil for pain control. You can also apply warm compresses or heating pad to your chest wall. Try to stretch her chest wall out throughout the day. Your evaluation in the Emergency Department did not reveal any acute reason for admission. However, I want to emphasize that you may be early in the course of a disease process or illness even if it is not present. For this reason you should follow-up within 24 hours for reevaluation with either your primary care physician or if necessary back here in the Emergency Department. You should return to the Emergency Department immediately if your symptoms worsen or new symptoms develop. Print Language: Persian Disposition Disposition: Home, Self Care Discharge Date/Time: 04/30/25 10:05
--- NOTE | 2025-04-30 08:39 | RAD_ITS ---
PROCEDURE: CHEST 1 VIEW (PORTABLE) 04/30/2025 REASON FOR EXAM: CHEST PAIN TECHNIQUE: Frontal view of the chest. COMPARISON: Prior study dated June 13, 2024. FINDINGS: Hardware: EKG electrodes are seen. Heart: The heart is nonenlarged. Lungs: Scattered tiny calcified granulomas. Bones: The bones are unremarkable. Other: RAD/Chest 1 View (Portable) IMPRESSION: No Acute Findings. Reading Location: [facility]
[2025-04-30] MEDS: Ketorolac 30 MG/ML Syringe IM (09:07)
[2025-04-30 09:13] LABS: Troponin T High Sensitivity < 6 ng/L (<=14)
[2025-04-30 09:53] VITALS: BP 110/74; PULSE 71; RESP 16; O2SAT 98
[2025-04-30 10:05] VITALS: BP 110/74; PULSE 71; RESP 16; TEMP 36.4; O2SAT 98
== END 2025-04-30 10:05 | disposition home or self-care (01) ==
PROVIDERS: Emergency Provider Student in an Organized Health Care Education/Training Program; Visit Provider Student in an Organized Health Care Education/Training Program
DX: R07.9 Chest pain, unspecified (principal); Z87.891 Personal history of nicotine dependence; K21.9 Gastro-esophageal reflux disease without esophagitis; Z79.899 Other long term (current) drug therapy; Z90.710 Acquired absence of both cervix and uterus; Z98.51 Tubal ligation status
CPT/HCPCS: 71045; 84484; 93005; 96372; 99282

== ENCOUNTER 2025-05-29 12:30 | Day surgery (SDC) | payer MEDICAID, SELFPAY ==
[2025-05-29] VITALS (7 sets, daily range): BP systolic 106–109; BP diastolic 67–70; PULSE 84–94; RESP 15–16; TEMP 36.1–36.5; O2SAT 94–98; BMI 32.7
--- NOTE | 2025-05-29 12:51 | HP.PCM_ITS ---
HPI - General General Date of Admission: 05/29/25 Date of Service: 05/29/25 Chief Complaint: dysphagia and esophageal motility disorder HPI Narrative LINDA ALBA, is a 39 F who presents for endoscopic therapy of esophageal dysphagia and motility disorder EGD 06.05.24 Z-line irregular, 39 cm from the incisors. Biopsied Esophageal mucosal changes suspicious for eosinophilic esophagitis. Benign-appearing esopha geal stenosis. Dilated. Small hiatal hernia. Chronic gastritis. Biopsied. Erythematous duodenopathy. Biopsied. Biopsies were taken with a cold forceps for evaluation of eosinophilic esophagitis. [facility] ED 06.13.24 abd pain abd/pelvis CT 06.13.24 4.7 cm x 4 cm right ovarian cyst. Scattered sigmoid diverticula. OV 07.15.24 pt reports that she had a hysterectomy 3 weeks ago and is still recovering. Reports continued symptoms of reflux and feeling like something is stuck in her throat. Pt is wondering if there are any other medications she can try. [facility] Medical History Ambulates with cane Arthritis Gastric reflux Wears glasses Anemia Smoker GERD (gastroesophageal reflux disease) Home Medications Medication Instructions Recorded Last Taken Type cetirizine 10 mg tablet (24Hour 10 mg PO DAILY 5 05/28/25 History Allergy) omeprazole 40 mg capsule,delayed 40 mg PO BID #60 caps 04/01/25 Unknown Rx release Allergy/AdvReac Type Severity Reaction Status Date / Time dicyclomine Allergy Severe Nausea/Vom/ Verified 05/29/25 12:51 Diarrhea Penicillins (PCN) Allergy Severe Anaphylaxis Verified 05/29/25 12:51 bee venom protein (honey AdvReac Other Verified 05/29/25 12:51 bee) (bees) morphine AdvReac Other Verified 05/29/25 12:51 Surgical History History of esophagogastroduodenoscopy (EGD) H/O: hysterectomy (06/26/24) Hx of tubal ligation Hx of tonsillectomy Social History Smoking Status: Current some day smoker tobacco type: e-cigarettes details: Not recently substance use type: does not use ROS Constitutional Constitutional: Denies fatigue, fever(s), poor appetite, weight gain or weight loss Gastrointestinal Gastrointestinal: Denies belching, bloating, change in bowel habits, change in stool character, chewing difficulty, coffee ground emesis, constipation, cramping, diarrhea, dyspepsia, dysphagia, early satiety, excessive flatus, fecal incontinence, heartburn, hematemesis, hematochezia, hemorrhoids, loose stools, melena, nausea, odynophagia, rectal bleeding, tenesmus, vomiting or weight changes Physical Exam Const alert, oriented x3, no apparent distress and healthy appearing General Appearance: cooperative GI normal to inspection, nondistended, normoactive bowel sounds, soft to palpation, non-tender and non-distended Percussion: normal to percussion Rectal Exam: deferred Assessment & Plan Assessment/Plan (1) Dysphagia: (2) GERD (gastroesophageal reflux disease): QUALIFIERS: Esophagitis presence: esophagitis presence not specified Qualified Code(s): K21.9 - Gastro-esophageal reflux disease without esophagitis PLAN: Assessment & Plan Assessment/Plan (1) GERD (gastroesophageal reflux disease): QUALIFIERS: Esophagitis presence: esophagitis presence not specified Qualified Code(s): K21.9 - Gastro-esophageal reflux disease without esophagitis (2) Dysphagia: PLAN: Plan Assessment and Plan (1) Gastroesophageal reflux disease: Status: Acute Qualifiers: Esophagitis presence: esophagitis presence not specified Qualified Code(s): K21.9 - Gastro-esophageal reflux disease without esophagitis Comment: NOT CONTROLLED WITH MEDS Plan: LINDA ALBA, is a 38 F who presents to the office today for establishment with [facility] for complaints of food moving up and down in her throat. Differential diagnoses include: EoE, GERD, esophageal dysmotility, LES dysfunction, gastroparesis, gastric outlet obstruction. * GET, 1 hr test to look for emptying time * esophageal manometry to rule out achalasia * EGD for tissue Bx to check for EoE, alarm symptom of 7 pound weight loss in 1 week. Biopsies of the stomach which is positive for mild gastritis without H. pylori and test metaplasia, dysplasia or cancer. Biopsies of her small bowel did not show any abnormalities. She underwent esophageal motility studies in the diagnosis from esophageal motility study was esophageal gastric junction outflow disorder. She has been tried on baclofen, PPI, famotidine without any resolution. I think she would benefit from Botox therapy.
[2025-05-29] MEDS: Lactated Ringers 1,000 ML 15 ML IV (13:00)
--- NOTE | 2025-05-29 13:20 | PCM.PRE.AN2 ---
ASA Classification* ASA Classification ASA Classification: 2 Assessment & Plan Anesthesia* Anesthesia Assessment Anesthesia Assessment: Discussed sedation and/or anesthesia options, risks, benefits, and alternatives with patient/parents/legal guardian/POA. Questions invited. The patient/parents/legal guardian/POA seems to understand and agrees to proceed with anesthesia plan. Reviewed the physical assessment, medical history, allergy history and patient home medications list prior to surgery/procedure/anesthetic and documented any changes. Performed airway and anesthesia risk assessments. Anesthesia Type Anesthesia Type: MAC History Source History Obtained from:: Patient and Chart Anesthesia Focused Assessment* Temperature: 97.7 F Pulse Rate: 88 Blood Pressure: 109/70 Respiratory Rate: 16 Pulse Ox: 97 Oxygen Delivery Method: Room Air Airway Assessment Mouth opens: >3 cm Mallampati Score: II Teeth Condition: Intact Neck Range of motion (ROM): Full ROM Labs Anesthesia Preop lab: CBC WBC, (4.4-11.0) 7.6 K/mm3 06/13/24, 07:50 RBC, (4.2-5.4) 4.50 M/mm3 06/13/24, 07:50 Hgb, (12.0-15.0) 13.3 g/dL 06/13/24, 07:50 Hct, (37-47) 41.2 % 06/13/24, 07:50 Plt Count, (150-450) 351 K/mm3 06/13/24, 07:50 CHEMISTRY Potassium, (3.5-5.1) 3.6 mmol/L 06/13/24, 07:50 Sodium, (136-145) 140 mmol/L 06/13/24, 07:50 BUN, (7-18) 13 mg/dL 06/13/24, 07:50 Creatinine, (0.55-1.02) 0.85 mg/dL 06/13/24, 07:50 Glucose, (74-106) 92 mg/dL 06/13/24, 07:50 COAG Pre-Assessment Diagnosis/Proposed Procedure Planned Operative Procedure(s): EGD WITH BOTOX Anesthesia History 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 When Was Last Pacemaker Check QUESTION #4 FULL TEXT: You/Your Family Experience fever (hyperthermia) with Anesthesia Last Oral Intake Last Oral intake: Last Oral Intake NPO since 20:00 05/29/25 12:52 Meds taken in AM with sips of No 05/29/25 12:52 water? Meds patient instructed to take am of surgery PONV PONV - astronautical engineer: PONV - astronautical engineer Female Yes 05/27/25 09:45 HX of Motion Sickness No 05/27/25 09:45 HX of N/V After Surgery No 05/27/25 09:45 Non-Smoker No 05/27/25 09:45 Duration of Surgery greater No 05/27/25 09:45 than 60 minutes Number of Risk Factors 1 05/27/25 09:45 PONV Score Low Risk 05/27/25 09:45 Height & Weight Height & Weight: Anesthesia: Height & Weight Height 5 ft 3 in 05/29/25 12:52 Weight: 83.8 kg 05/29/25 12:52 Body Mass Index (BMI) 32.7 05/29/25 12:52 Respiratory Assessment Respiratory Assessment - astronautical engineer: Respiratory Tract Infection Hx - astronautical engineer Hx Respiratory Tract Infection No 05/27/25 09:45 STOP Sleep Apnea STOP Sleep Apnea - astronautical engineer: STOP Sleep Apnea - astronautical engineer Hx Hypertension No 05/27/25 09:45 Hx Sleep Apnea No 05/27/25 09:45 CPAP BIPAP Do you snore loudly (louder No 05/27/25 09:45 than talking or can be heard Do you often feel tired/ No 05/27/25 09:45 fatigued/ sleepy during daytime? Has anyone observed you stop No 05/27/25 09:45 breathing during sleep? STOP Results Negative 05/27/25 09:45 QUESTION #5 FULL TEXT : Do you snore loudly (louder than talking or can be heard through closed doors)? Tobacco Use History Tobacco Use History - astronautical engineer: Tobacco Use History - astronautical engineer Tobacco Use Smoking Status Current some day smoker 05/27/25 09:45 Hx Tobacco Use Yes 05/27/25 09:45 Years Smoking Packs Smoked per Day Smoking Cessation Date was within the last 15 years Hx Smoking Cessation Date 05/27/25 09:45 Hx Smoking Cessation Counseling Hematologic Medial History Hematologic Hx - astronautical engineer: Hematologic Medical Hx - digital pre press operator Hx of Blood Transfusion No 05/27/25 09:45 Hx of Transfusion in last 3 No 05/27/25 09:45 Months Date of Last Transfusion (if within last 3 months) Ever experience any problems No 05/27/25 09:45 with transfusion(s)? Specify any problems Hx of Preganancy in last 3 No 05/27/25 09:45 Months Nurse Filling Out Transfusion [facility] 05/27/25 09:45 & Questions: Date: 05/27/25 05/27/25 09:45 Time: 09:50 05/27/25 09:45 Patient unable to answer at this time (ie. confused, unrespo /Reproduction History /Reproductive History - astronautical engineer: /Reproductive Hx- astronautical engineer Hx Now No 05/27/25 09:45 Gestational Age (in weeks): EDC: Hx Hx Para Hx Section SAB No 05/27/25 09:45 Active Medications Active Medications: Current Medications Generic Name Dose Route Start Last Admin Trade Name Freq PRN Reason Stop Dose Admin Lactated Ringer's 1,000 mls @ 15 mls/hr 05/29/25 13:00 05/29/25 13:00 IV 15 mls/hr .Q48H VARINDER Administration PFSH Medical History Ambulates with cane Arthritis Gastric reflux Wears glasses Anemia Smoker GERD (gastroesophageal reflux disease) Home Medications Medication Instructions Recorded Last Taken Type cetirizine 10 mg tablet (24Hour 10 mg PO DAILY 10/02/24 05/28/25 History Allergy) omeprazole 40 mg capsule,delayed 40 mg PO BID #60 caps 04/01/25 Unknown Rx release Allergy/AdvReac Type Severity Reaction Status Date / Time dicyclomine Allergy Severe Nausea/Vom/ Verified 05/29/25 12:51 Diarrhea Penicillins (PCN) Allergy Severe Anaphylaxis Verified 05/29/25 12:51 bee venom protein (honey AdvReac Other Verified 05/29/25 12:51 bee) (bees) morphine AdvReac Other Verified 05/29/25 12:51 Surgical History History of esophagogastroduodenoscopy (EGD) H/O: hysterectomy (06/26/24) Hx of tubal ligation Hx of tonsillectomy Social History Smoking Status: Current some day smoker tobacco type: e-cigarettes details: Not recently substance use type: does not use Review of Systems (Anesthesia) ROS Narrative System reviewed and no additional complaints, except as documented.
[2025-05-29] MEDS: Lidocaine 1% (5 ml sdv) 5 ML Vial 10 ML IV (14:41)
[2025-05-29] MEDS: 0.9% Saline Lock 10 ML Syringe IV (14:45)
[2025-05-29] MEDS: 0.9% Normal Saline (Pres. free 10 ML Vial (14:45)
--- NOTE | 2025-05-29 14:59 | PCM.POST.ANE ---
Anesthesia: Postop Eval I Current Vital Signs Temperature: 97.1 F Pulse Rate: 84 Blood Pressure: 108/68 Respiratory Rate: 15 Pulse Ox: 95 Oxygen Delivery Method: Room Air Assessment Airway patent: Yes Spontaneous unlabored respirations: Yes Mental status: Awake and Calm nausea: No Vomiting: No Anesthesia Complication: No Fluid Hydration Crystalloid volume administer (ml): 900 Total IV fluid infused: 900 Progress Note Anesthesia document: Postop Eval 1 completed: No
--- NOTE | 2025-05-29 15:03 | OP.EGD_ITS ---
Patient Name: Jamila Almonte Procedure Date: 05/29/2025 2:33 PM Date of : 1985 Age: 39 Procedure: Upper GI endoscopy Indications: Failure to respond to medical treatment, For botulinum toxin injection of achalasia Providers: Fredo Welch DO Referring MD: No Primary Care Physician Medicines: Monitored Anesthesia Care Patient Profile: This is a 39 year old female. Refer to note in patient chart for documentation of history and physical. Patient has symptoms. Patient has symptoms of chronic chest pain. Complications: No immediate complications. Procedure: Pre-Anesthesia Assessment: - Prior to the procedure, a History and Physical was performed, and patient medications and allergies were reviewed. The patient is competent. The risks and benefits of the procedure and the sedation options and risks were discussed with the patient. All questions were answered and informed consent was obtained. Patient identification and proposed procedure were verified by the physician in the pre-procedure area. Mental Status Examination: alert and oriented. Airway Examination: normal oropharyngeal airway and neck mobility. Respiratory Examination: clear to auscultation. CV Examination: normal. Prophylactic Antibiotics: The patient does not require prophylactic antibiotics. Prior Anticoagulants: The patient has taken no anticoagulant or antiplatelet agents. ASA Grade Assessment: II - A patient with mild systemic disease. After reviewing the risks and benefits, the patient was deemed in satisfactory condition to undergo the procedure. The anesthesia plan was to use monitored anesthesia care (MAC). Immediately prior to administration of medications, the patient was re-assessed for adequacy to receive sedatives. The heart rate, respiratory rate, oxygen saturations, blood pressure, adequacy of pulmonary ventilation, and response to care were monitored throughout the procedure. The physical status of the patient was re-assessed after the procedure. After obtaining informed consent, the endoscope was passed under direct vision. Throughout the procedure, the patient's blood pressure, pulse, and oxygen saturations were monitored continuously. The Endoscope was introduced through the mouth, and advanced to the second part of duodenum. The upper GI endoscopy was accomplished without difficulty. The patient tolerated the procedure well. Scope In: 2:45:56 PM Scope Out: 2:49:52 PM Total Procedure Duration Time 0 hours 3 minutes 56 seconds Findings: Abnormal motility was noted in the esophagus. The cricopharyngeus was abnormal. There are extra peristaltic waves in the esophageal body. The distal esophagus/lower esophageal sphincter is spastic, but gives up passage to the endoscope. Tertiary peristaltic waves are noted. Area was successfully injected with 100 units botulinum toxin. A medium-sized hiatal hernia was present. No gross lesions were noted in the entire examined duodenum. Impression: - Abnormal esophageal motility, established achalasia. Injected with botulinum toxin. - Medium-sized hiatal hernia. - No gross lesions in the entire examined duodenum. - No specimens collected. Recommendation: - Discharge patient to home. - Continue present medications. Procedure Code(s): --- Professional --- 78227, Esophagogastroduodenoscopy, flexible, transoral; with directed submucosal injection(s), any substance CPT copyright 2021 [employer]. All rights reserved. The codes documented in this report are preliminary and upon grip assembler review may be revised to meet current compliance requirements. Fredo Welch DO 05/29/2025 3:02:29 PM This report has been signed electronically. Number of Addenda: 0 Note Initiated On: 05/29/2025 2:33 PM
--- NOTE | 2025-05-29 15:03 | OP.PROVAT_ITS ---
05/29/2025 No Primary Care Physician Re : Upper GI endoscopy procedure for Jamila Almonte Dear Care Physician This procedure was performed on Thursday, May 29, 2025. My impressions and recommendations are as follows: Impressions : - Abnormal esophageal motility, established achalasia. Injected with botulinum toxin. - Medium-sized hiatal hernia. - No gross lesions in the entire examined duodenum. - No specimens collected. Recommendations : - Discharge patient to home. - Continue present medications. My findings are described in the full procedure note, which is enclosed. If I can be of further assistance, please feel free to contact me at . Sincerely, Fredo Welch, 05/29/2025 3:02:29 PM This report has been signed electronically.
--- NOTE | 2025-05-29 15:32 | POSTOPAN2_ITS ---
Anesthesia Postop Eval I Sum Postop Eval Completion status Anesthesia document: Postop Eval 1 completed: No Anesthesia Postop Eval I Summary Anesthesia Postop Eval I Summary: Anesthesia Postop Eval I: Assessment Summary Airway patent Yes 05/29/25 14:59 DENTAL CLAIMS [email or web address] Spontaneous unlabored Yes 05/29/25 14:59 DENTAL CLAIMS [email or web address] respirations Mental status Awake,Calm 05/29/25 14:59 DENTAL CLAIMS [email or web address] nausea No 05/29/25 14:59 DENTAL CLAIMS [email or web address] Vomiting No 05/29/25 14:59 DENTAL CLAIMS [email or web address] Anesthesia Postop Eval I: Fluid Summary Crystalloid volume administer 900 05/29/25 14:59 DENTAL CLAIMS [email or web address] (ml) Colloids volume administered ( ml) Blood Product volume administered (ml) Total IV fluid infused 900 05/29/25 14:59 DENTAL CLAIMS [email or web address] Anesthesia Postop Eval I: Summary Notes Anesthesia Complication No 05/29/25 14:59 DENTAL CLAIMS [email or web address] Anesthesia Complication Comment: Post-operative progress note Anesthesia: Postop Eval II Evaluation Mental status: Awake and Calm Pain Level: 1 nausea: No Vomiting: No Complications Anesthesia Complication: No
--- NOTE | 2025-05-29 15:32 | PCM.POSTANE2 ---
Anesthesia Postop Eval I Sum Postop Eval Completion status Anesthesia document: Postop Eval 1 completed: No Anesthesia Postop Eval I Summary Anesthesia Postop Eval I Summary: Anesthesia Postop Eval I: Assessment Summary Airway patent Yes 05/29/25 14:59 [email or web address] [email or web address] Spontaneous unlabored Yes 05/29/25 14:59 [email or web address] [email or web address] respirations Mental status Awake,Calm 05/29/25 14:59 [email or web address] [email or web address] nausea No 05/29/25 14:59 [email or web address] [email or web address] Vomiting No 05/29/25 14:59 [email or web address] [email or web address] Anesthesia Postop Eval I: Fluid Summary Crystalloid volume administer 900 05/29/25 14:59 [email or web address] [email or web address] (ml) Colloids volume administered ( ml) Blood Product volume administered (ml) Total IV fluid infused 900 05/29/25 14:59 [email or web address] [email or web address] Anesthesia Postop Eval I: Summary Notes Anesthesia Complication No 05/29/25 14:59 [email or web address] [email or web address] Anesthesia Complication Comment: Post-operative progress note Anesthesia: Postop Eval II Evaluation Mental status: Awake and Calm Pain Level: 1 nausea: No Vomiting: No Complications Anesthesia Complication: No
== END 2025-05-29 15:31 | disposition home or self-care (01) ==
LOC: EN 12:30 → AC 12:31
PROVIDERS: Visit Provider Internal Medicine Gastroenterology
PROC: 0DJ08ZZ Inspection of Upper Intestinal Tract, Via Natural or Artificial Opening Endoscopic (ICD-10-PCS; CPT 43235; principal; 2025-05-29 14:25)
DX: K22.0 Achalasia of cardia (principal); K21.9 Gastro-esophageal reflux disease without esophagitis; K44.9 Diaphragmatic hernia without obstruction or gangrene; F17.290 Nicotine dependence, other tobacco product, uncomplicated
CPT/HCPCS: 43236; A4216; J0585